=== PATIENT | male | born 1975 | race Caucasian/White ===

== ENCOUNTER 2017-12-06 21:17 | Emergency (ER) | payer MEDICARE, OTHER ==
[~2017-12-06] VITALS: Ht 177.8 cm; Wt 68.0 kg
[2017-12-06] MEDS ORDERED: BUSP5TAB3 PO (22:37)
[2017-12-06] MEDS ORDERED: ARIP2TAB3 PO (22:37)
[2017-12-06] MEDS ORDERED: LORAZEPAM 1 MG TABLET PO ONE (23:00)
[2017-12-06] MEDS ORDERED: OLANZAPINE 5 MG/TAB.RAPDIS PO ONE (23:00)
[2017-12-06] MEDS ORDERED: LORAZEPAM 1 MG TABLET ONE (23:11)
[2017-12-06] MEDS ORDERED: OLANZAPINE 5 MG TABLET ONE (23:11)
[2017-12-06 23:24] LABS: BASOPHILS # (AUTO) 0.1 /CMM (0.0-0.2); BASOPHILS % (AUTO) 0.6 % (0.0-2.0); HEMATOCRIT 47 % (39-51); HEMOGLOBIN 15.6 g/dL (13.5-17.5); LYMPHOCYTES # (AUTO) 1.5 /CMM (0.8-4.8); LYMPHOCYTES % (AUTO) 9.5 % (20.0-44.0); MEAN CORPUSCULAR HEMOGLOBIN 32 PG (26.0-33.0); MEAN CORPUSCULAR HGB CONC 33 g/dl (31.0-36.0); MEAN CORPUSCULAR VOLUME 95 fL (80-96); MONOCYTES # (AUTO) 0.8 /CMM (0.1-1.30); MONOCYTES % (AUTO) 5.1 % (2.0-12.0); NEUTROPHILS # (AUTO) 13.7 /CMM (1.8-8.9); NEUTROPHILS % (AUTO) 84.8 % (43.0-81.0); PLATELET COUNT (AUTO) 332 /CMM (150-450); RDW COEFFICIENT OF VARIATION 13.8 (11.5-15.0); RED BLOOD CELL COUNT(AUTO) 4.91 MIL/uL (4.5-6.0); WHITE BLOOD COUNT (AUTO) 16.2 K/uL (4.3-11.0)
[2017-12-06 23:36] LABS: CALCIUM, SERUM 9.2 mg/dL (8.5-10.1); CARBON DIOXIDE 24 mmol/L (21-32); CHLORIDE 99 mmol/L (98-107); CREATININE 1.1 mg/dL (0.6-1.3); GLUCOSE 109 mg/dL (74-106); POTASSIUM 3.1 mmol/L (3.5-5.1); SODIUM SERUM 134 mmol/L (136-145); UREA NITROGEN, BLOOD 9 mg/dL (7-18)
[2017-12-06 23:41] LABS: ALANINE AMINOTRANSFERASE 48 U/L (12-78); ALBUMIN 4.2 g/dL (3.4-5.0); ALCOHOL, BLOOD < 3 mg/dL (0-0); ALKALINE PHOSPHATASE 82 U/L (46-116); ASPARTATE AMINOTRANSFERASE 69 U/L (15-37); BILIRUBIN,DIRECT 0.1 mg/dL (0.0-0.2); BILIRUBIN,TOTAL 0.6 mg/dL (0.2-1.0); TOTAL PROTEIN, SERUM 8.1 g/dL (6.4-8.2)
[2017-12-06] MEDS ORDERED: POTASSIUM CHLORIDE 20 MEQ TAB.PRT.SR PO ONE (23:57)
[2017-12-07] MEDS ORDERED: POTASSIUM CHLORIDE 20 MEQ TAB.PRT.SR PO ONE
[2017-12-07 00:11] LABS: APPEARANCE,URINE CLEAR (CLEAR); BILIRUBIN,URINE NEGATIVE (NEGATIVE); BLOOD, URINE TRACE-INTA Ery/uL (NEGATIVE); COLOR,URINE YELLOW (YELLOW); KETONES,URINE TRACE (NEGATIVE); LEUKOCYTE ESTERASE ,URINE NEGATIVE (NEGATIVE); NITRITE, URINE NEGATIVE (NEGATIVE); PROTEIN,URINE 1+ mg/dl (NEGATIVE); UGLUCOSE NEGATIVE (NEGATIVE); UROBILINOGEN,URINE 0.2 EU/dL (0.2)
[2017-12-07 00:29] LABS: BACTERIA,URINE Few /HPF (None Seen); MUCUS,URINE Few /LPF (None Seen); SQUAMOUS EPITHELIAL CELL,UR Rare /HPF (None Seen)
[2017-12-07] MEDS ORDERED: LORAZEPAM 1 MG TABLET ONE (01:00)
[2017-12-07 01:11] VITALS: BP 145/89
[2017-12-07] MEDS ORDERED: LORAZEPAM 1 MG TABLET PO ONE (01:30)
== END 2017-12-07 01:24 | disposition home or self-care (01) ==
LOC: ER 21:18
DX: F20.9 Schizophrenia, unspecified (principal); F31.9 Bipolar disorder, unspecified
CPT/HCPCS: 36415; 80048; 80076; 80305; 81001; 85025; 99284; A4606; G0480; 81000-TC; Z7610

== ENCOUNTER 2018-08-04 20:57 | Emergency (ER) | payer MEDICARE, OTHER ==
[~2018-08-04] VITALS: Ht 185.4 cm; Wt 97.1 kg
[~2018-08-04 20:57] MED LIST: ARIP2TAB3 PO; BUSP5TAB3 PO
[2018-08-04 21:57] VITALS: BP 149/97
--- NOTE | 2018-08-04 23:06 | NUR ---
PT LEFT WITHOUT DISCHARGE INSTRUCTIONS.
== END 2018-08-04 23:09 | disposition home or self-care (01) ==
LOC: ER 20:57
DX: F41.9 Anxiety disorder, unspecified (principal); F10.129 Alcohol abuse with intoxication, unspecified; F31.9 Bipolar disorder, unspecified; Y90.9 Presence of alcohol in blood, level not specified; Z90.89 Acquired absence of other organs

== ENCOUNTER 2018-08-18 18:16 | Emergency (ER) | payer MEDICARE, OTHER ==
[~2018-08-18] VITALS: Ht 185.4 cm; Wt 97.1 kg
[2018-08-18 18:16] VITALS: BP 157/112
[2018-08-18] MEDS ORDERED: LORAZEPAM 1 MG TABLET PO ONE (22:30)
[2018-08-18] MEDS ORDERED: LORAZEPAM 1 MG TABLET ONE (22:55)
== END 2018-08-18 23:19 | disposition home or self-care (01) ==
LOC: ER 18:21
DX: F41.9 Anxiety disorder, unspecified (principal); F31.9 Bipolar disorder, unspecified; Z90.89 Acquired absence of other organs; Z79.899 Other long term (current) drug therapy

== ENCOUNTER 2019-02-06 06:04 | Emergency (ER) | payer MEDICARE, OTHER ==
[~2019-02-06] VITALS: Ht 185.4 cm; Wt 104.3 kg
--- NOTE | 2019-02-06 06:15 | NUR ---
PT BIBSELF REQUESTING MED REFILL FOR INVEGA MEDICATION. PT ALSO C/O AUDITORY HALLUCIATIONS AND REQUESTING FOR VOLUNTARY ADMISSION TO PSYCH FACILITY. DENIES SI/HI AT THIS TIME. PT AAOX4. CALM AND COOPERATIVE. RESPIRATIONS EVEN AND UNLABORED. SKIN WARM AND INTACT. ABLE TO AMBULATE WITH STEADY GAIT. NO ACUTE DISTRESS NOTED AT THIS TIME. WILL CONTINUE TO MONITOR
--- NOTE | 2019-02-06 06:30 | NUR ---
URINE COLLECTED AND SENT TO LAB
--- NOTE | 2019-02-06 06:40 | NUR ---
TITRATOR AT BEDSIDE FOR BLOOD DRAW
[2019-02-06 07:01] LABS: BASOPHILS # (AUTO) 0.1 /CMM (0.0-0.2); BASOPHILS % (AUTO) 0.5 % (0.0-2.0); EOSINOPHILS % (AUTO) 0.2 % (0.0-6.0); HEMATOCRIT 46 % (39-51); HEMOGLOBIN 15.7 g/dL (13.5-17.5); LYMPHOCYTES # (AUTO) 1.8 /CMM (0.8-4.8); LYMPHOCYTES % (AUTO) 12.9 % (20.0-44.0); MEAN CORPUSCULAR HGB CONC 34 g/dl (31.0-36.0); MEAN CORPUSCULAR VOLUME 93 fL (80-96); MONOCYTES # (AUTO) 0.8 /CMM (0.1-1.30); MONOCYTES % (AUTO) 5.9 % (2.0-12.0); NEUTROPHILS # (AUTO) 11.5 /CMM (1.8-8.9); NEUTROPHILS % (AUTO) 80.5 % (43.0-81.0); PLATELET COUNT (AUTO) 382 /CMM (150-450); WHITE BLOOD COUNT (AUTO) 14.3 K/uL (4.3-11.0)
[2019-02-06 07:11] LABS: CALCIUM, SERUM 9.1 mg/dL (8.5-10.1); CARBON DIOXIDE 27 mmol/L (21-32); CHLORIDE 98 mmol/L (98-107); CREATININE 0.9 mg/dL (0.6-1.3); GLUCOSE 113 mg/dL (74-106); POTASSIUM 4.2 mmol/L (3.5-5.1); SODIUM SERUM 136 mmol/L (136-145); UREA NITROGEN, BLOOD 7 mg/dL (7-18)
[2019-02-06 07:19] LABS: ALANINE AMINOTRANSFERASE 24 U/L (12-78); ALBUMIN 4.1 g/dL (3.4-5.0); ALCOHOL, BLOOD < 3 mg/dL (0-0); ALKALINE PHOSPHATASE 80 U/L (46-116); ASPARTATE AMINOTRANSFERASE 14 U/L (15-37); BILIRUBIN,DIRECT 0.1 mg/dL (0.0-0.2); BILIRUBIN,TOTAL 0.5 mg/dL (0.2-1.0); SALICYLATE 4.8 mg/dL (2.8-20.0)
[2019-02-06 07:24] LABS: APPEARANCE,URINE Clear (CLEAR); BILIRUBIN,URINE Negative (NEGATIVE); BLOOD, URINE Trace-intact Ery/uL (NEGATIVE); COLOR,URINE Yellow (YELLOW); KETONES,URINE Negative (NEGATIVE); LEUKOCYTE ESTERASE ,URINE Negative (NEGATIVE); NITRITE, URINE Negative (NEGATIVE); PH,URINE 7.5 (5.0-8.0); PROTEIN,URINE Negative (NEGATIVE); UGLUCOSE Negative (NEGATIVE); UROBILINOGEN,URINE 0.2 EU/dL (0.2)
[2019-02-06 07:42] LABS: ACETAMINOPHEN 0 ug/ml (10-30)
[2019-02-06 07:47] LABS: BACTERIA,URINE Rare /HPF (None Seen); SQUAMOUS EPITHELIAL CELL,UR Few /HPF (None Seen); WBC,URINE NONE SEEN /HPF (0-3)
--- NOTE | 2019-02-06 11:53 | NUR ---
RECIEVED CALL FROM INTAKE AT [facility] YISSEL ESTRADA STATING THEY HAVE RECEIVED FAX AND WILL FORWARD TO [facility] FOR REVIEW AND FOLLOW UP
--- NOTE | 2019-02-06 13:48 | NUR ---
CALLED [facility] FOR UPDATE, ROSA PARIKH WILL CALL BACK
[2019-02-06] MEDS ORDERED: MIDAZOLAM HCL 5 MG/5ML VIAL IM ONE (15:00)
--- NOTE | 2019-02-06 16:05 | NUR ---
PER [facility], NO FORESEABLE DISCHARGES AT THE MOMENT WILL CALL WITH UPDATE
--- NOTE | 2019-02-06 19:41 | NUR ---
-[facility]ED [facility] MD: DR. HERNANDEZ/ DR. MEYERS NUMBER FOR REPORT: [phone]
--- NOTE | 2019-02-06 19:59 | NUR ---
CALLED [facility] 2029 TRIP NUMBER [id number]
--- NOTE | 2019-02-06 20:07 | NUR ---
PER [facility], INCORRECT BED ASSIGNMENT WAS MADE. NO BEDS AVAILABLE AT THIS TIME. WILL CALL BACK ONCE MALE BED BECOMES AVAILABLE.
--- NOTE | 2019-02-06 22:39 | NUR ---
PER [facility] CHINO SHUKLA, PT WILL GO TO [facility], PLEASE CALL RN FOR ROOM ASSIGNMENT AND REPORT AT [phone] EXT [phone]
--- NOTE | 2019-02-07 00:19 | NUR ---
GAVE REPORT TO MIAH LEE FOR [facility] FROM [facility]
--- NOTE | 2019-02-07 00:22 | NUR ---
CALLED [facility] FOR TRANSPORTATION, ETA 0033
--- NOTE | 2019-02-07 00:30 | NUR ---
PT AAOX4. VITAL SIGNS STABLE. DENIES SI/HI AT THIS TIME. PT REFUSING TO GO TO [facility]. DR. SILVA MADE AWARE, PT MEDICALLY CLEARED FOR DISCHARGE
[2019-02-07 00:43] VITALS: BP 141/89
--- NOTE | 2019-02-07 00:44 | NUR ---
Patient given written and verbal discharge instructions. Patient verbalizes understanding of instructions. Patient is ambulatory with steady gait. Refuses offer of detention placement. Patient given list of available shelters in surrounding area.
== END 2019-02-07 00:48 | disposition home or self-care (01) ==
LOC: ER 06:07
DX: F20.9 Schizophrenia, unspecified (principal); F41.9 Anxiety disorder, unspecified; F15.10 Other stimulant abuse, uncomplicated; G47.00 Insomnia, unspecified; I10 Essential (primary) hypertension; F31.9 Bipolar disorder, unspecified; F10.10 Alcohol abuse, uncomplicated; F17.200 Nicotine dependence, unspecified, uncomplicated; Y90.0 Blood alcohol level of less than 20 mg/100 ml; Z90.89 Acquired absence of other organs
CPT/HCPCS: 36415; 80048; 80076; 80305; 80307; 80329; 81001; 85025; 99284; G0480; 81000-TC

== ENCOUNTER 2019-04-05 04:15 | Emergency (ER) | payer MEDICARE, OTHER ==
[~2019-04-05] VITALS: Ht 177.8 cm; Wt 99.8 kg
[2019-04-05] MEDS ORDERED: LORAZEPAM 1 MG TABLET PO ONE (04:30)
[2019-04-05] MEDS ORDERED: OLANZAPINE 5 MG TABLET PO ONE (04:30)
[2019-04-05] MEDS ORDERED: LORAZEPAM 1 MG TABLET ONE (04:33)
[2019-04-05] MEDS ORDERED: OLANZAPINE 5 MG TABLET ONE (04:33)
--- NOTE | 2019-04-05 04:35 | NUR ---
biba w/ c/o anxiety and "feeling uncomfortable" after using metamitamin. pt is pplaced on a monitor. vss. will cont to monitor,
[2019-04-05 04:47] LABS: BASOPHILS # (AUTO) 0.1 /CMM (0.0-0.2); BASOPHILS % (AUTO) 0.9 % (0.0-2.0); EOSINOPHILS % (AUTO) 0.1 % (0.0-6.0); HEMATOCRIT 41 % (39-51); LYMPHOCYTES # (AUTO) 1.3 /CMM (0.8-4.8); LYMPHOCYTES % (AUTO) 11.5 % (20.0-44.0); MEAN CORPUSCULAR HGB CONC 34 g/dl (31.0-36.0); MEAN CORPUSCULAR VOLUME 94 fL (80-96); MONOCYTES # (AUTO) 0.5 /CMM (0.1-1.30); MONOCYTES % (AUTO) 4.2 % (2.0-12.0); NEUTROPHILS # (AUTO) 9.8 /CMM (1.8-8.9); NEUTROPHILS % (AUTO) 83.3 % (43.0-81.0); PLATELET COUNT (AUTO) 391 /CMM (150-450); RED BLOOD CELL COUNT(AUTO) 4.34 MIL/uL (4.5-6.0); WHITE BLOOD COUNT (AUTO) 11.8 K/uL (4.3-11.0)
[2019-04-05 04:58] LABS: CALCIUM, SERUM 8.4 mg/dL (8.5-10.1); CARBON DIOXIDE 20 mmol/L (21-32); CHLORIDE 102 mmol/L (98-107); CREATININE 0.9 mg/dL (0.6-1.3); GLUCOSE 131 mg/dL (74-106); POTASSIUM 3.4 mmol/L (3.5-5.1); SODIUM SERUM 139 mmol/L (136-145); UREA NITROGEN, BLOOD 10 mg/dL (7-18)
[2019-04-05] MEDS ORDERED: IV NS 0.9% 1,000 ML BAG IV ONE (05:00)
[2019-04-05 05:10] LABS: ALANINE AMINOTRANSFERASE 32 U/L (12-78); ALBUMIN 3.7 g/dL (3.4-5.0); ALKALINE PHOSPHATASE 73 U/L (46-116); ASPARTATE AMINOTRANSFERASE 23 U/L (15-37); BILIRUBIN,DIRECT 0.1 mg/dL (0.0-0.2); BILIRUBIN,TOTAL 0.2 mg/dL (0.2-1.0); TOTAL PROTEIN, SERUM 7.2 g/dL (6.4-8.2)
[2019-04-05 05:11] LABS: B-TYPE NATRIURETIC PEPTIDE < 5 PG/ML (0-125)
[2019-04-05] MEDS ORDERED: methylPREDNISolone SOD SUCC 125 MG/2ML VIAL ONE (05:18)
[2019-04-05] MEDS ORDERED: IPRATROPIUM NEB FS 0.5 MG/2.5 ML AMPUL.NEB ONE (05:20)
[2019-04-05] MEDS ORDERED: ALBUTEROL FS 2.5 MG/3 ML VIAL.NEB ONE (05:20)
[2019-04-05] MEDS ORDERED: methylPREDNISolone SOD SUCC 125 MG/2ML VIAL IV ONE (05:30)
[2019-04-05] MEDS ORDERED: ALBUTEROL FS 2.5 MG/3 ML VIAL.NEB NEB ONE (05:30)
[2019-04-05] MEDS ORDERED: IPRATROPIUM NEB FS 0.5 MG/2.5 ML AMPUL.NEB NEB ONE (05:30)
--- NOTE | 2019-04-05 06:50 | NUR ---
IV removed. Catheter intact and site benign. Pressure and 4x4 applied to site. No bleeding noted.
--- NOTE | 2019-04-05 07:49 | NUR ---
Patient discharged to home in stable condition. Written and verbal after care instructions given. Patient verbalizes understanding of instruction.
[2019-04-05 07:50] VITALS: BP 142/77
== END 2019-04-05 07:52 | disposition home or self-care (01) ==
LOC: ER 04:16
DX: F20.9 Schizophrenia, unspecified (principal); F41.9 Anxiety disorder, unspecified; R00.0 Tachycardia, unspecified; F15.10 Other stimulant abuse, uncomplicated; F17.200 Nicotine dependence, unspecified, uncomplicated; I10 Essential (primary) hypertension; F31.9 Bipolar disorder, unspecified; Z90.89 Acquired absence of other organs; Z79.899 Other long term (current) drug therapy
CPT/HCPCS: 36415; 71045; 80048; 80076; 83880; 84484; 85025; 85378; 93005 ×2; 94640; 96374; 99284; 99406; J7030; J2930

== ENCOUNTER 2019-07-12 06:05 | Emergency (ER) | payer MEDICARE, OTHER ==
[~2019-07-12] VITALS: Ht 185.4 cm; Wt 97.1 kg
--- NOTE | 2019-07-12 06:24 | NUR ---
Belonings placed in locker. Sitter at bedside. Awaiting Urine sample.
--- NOTE | 2019-07-12 06:24 | NUR ---
BIBRA39. AAOX4. AMBULATORY WITH STEADY GAIT. C/O FEELING ANXIOUS - RACING THOUGHT, HEADACHE, DIFFICULTY BREATHING. -SI, -HI. Placed in gown, VSS, No acute distress noted.
--- NOTE | 2019-07-12 06:35 | NUR ---
INTERNATIONAL FIRST OFFICER AT BEDSIDE FOR LABS.
[2019-07-12 06:49] LABS: BASOPHILS # (AUTO) 0.1 /CMM (0.0-0.2); BASOPHILS % (AUTO) 0.7 % (0.0-2.0); EOSINOPHILS % (AUTO) 0.3 % (0.0-6.0); HEMATOCRIT 49 % (39-51); HEMOGLOBIN 16.3 g/dL (13.5-17.5); LYMPHOCYTES # (AUTO) 1.7 /CMM (0.8-4.8); MEAN CORPUSCULAR HGB CONC 33 g/dl (31.0-36.0); MEAN CORPUSCULAR VOLUME 94 fL (80-96); MONOCYTES # (AUTO) 0.5 /CMM (0.1-1.30); MONOCYTES % (AUTO) 5.7 % (2.0-12.0); NEUTROPHILS # (AUTO) 5.8 /CMM (1.8-8.9); NEUTROPHILS % (AUTO) 72.3 % (43.0-81.0); PLATELET COUNT (AUTO) 422 /CMM (150-450); RED BLOOD CELL COUNT(AUTO) 5.19 MIL/uL (4.5-6.0); WHITE BLOOD COUNT (AUTO) 8.1 K/uL (4.3-11.0)
[2019-07-12 06:54] LABS: CALCIUM, SERUM 8.1 mg/dL (8.5-10.1); POTASSIUM 3.5 mmol/L (3.5-5.1)
[2019-07-12 07:01] LABS: ALBUMIN 3.6 g/dL (3.4-5.0); BILIRUBIN,DIRECT 0.1 mg/dL (0.0-0.2); BILIRUBIN,TOTAL 0.4 mg/dL (0.2-1.0); TOTAL PROTEIN, SERUM 6.9 g/dL (6.4-8.2)
--- NOTE | 2019-07-12 07:56 | NUR ---
ENCOURAGED PATIENT TO GIVE URINE SAMPLE, PATIENT STILL UNABLE TO PROVIDE A SAMPLE AT THIS TIME.
--- NOTE | 2019-07-12 08:28 | NUR ---
JL AT [facility] HOLDING BED 108-B FOR PT [phone]
--- NOTE | 2019-07-12 08:42 | NUR ---
Social service consult requested by MD for voluntary psychiatric admission. Per MD notes, pt is a 43-year-old male who states he was feeling "bad this morning". Patient states he is feeling depressed and having "bad thoughts". Patient states he is having thoughts of suicide. Patient plans to drink himself to . Patient did not feel comfortable with himself so he called 911 and told them that he could not breathe. Patient admits to drinking alcohol earlier today. ELECTRONIC PAGINATION SYSTEM OPERATOR met with the pt bedside in ED. ELECTRONIC PAGINATION SYSTEM OPERATOR introduced self and explained her role. Pt is alert and oriented x 4. Pt appears disheveled and unkempt. Pt reports to be homeless for 2 years. Pt reports he has a history of Bipolar and Schizophrenia. Pt is not taking any psychotropic medications at this time. Pt states, he was last hospitalized at [facility] a couple of months ago. Pt reports he is feeling suicidal with a plan to "drink himself to ." Pt reports he has high blood pressure and ran out of his medications. Pt drinks alcohol daily and last drank up to 5 bottles of vodka. Pt denies any drug use. Pt smokes about 20 cigarettes per day. Pt receives $800 per month in SSDI. Pt is seeking voluntary psychiatric admission. ELECTRONIC PAGINATION SYSTEM OPERATOR contacted Henry at [facility] who will be holding bed 108/A for the pt. ELECTRONIC PAGINATION SYSTEM OPERATOR to fax clinicals once labs are available. ELECTRONIC PAGINATION SYSTEM OPERATOR updated MD regarding pt's discharge plan.
[2019-07-12 08:45] LABS: APPEARANCE,URINE CLEAR (CLEAR); COLOR,URINE YELLOW (YELLOW)
[2019-07-12 08:46] LABS: BILIRUBIN,URINE NEGATIVE (NEGATIVE); BLOOD, URINE NEGATIVE Ery/uL (NEGATIVE); KETONES,URINE TRACE (NEGATIVE); LEUKOCYTE ESTERASE ,URINE NEGATIVE (NEGATIVE); NITRITE, URINE NEGATIVE (NEGATIVE); PROTEIN,URINE NEGATIVE (NEGATIVE); UGLUCOSE NEGATIVE (NEGATIVE); UROBILINOGEN,URINE 0.2 EU/dL (0.2)
[2019-07-12] MEDS ORDERED: PROPRANOLOL LA 60 MG CAP.SA.24H PO SCH (09:00)
[2019-07-12] MEDS ORDERED: PROPRANOLOL HCL 40 MG TABLET PO ONE (09:00)
--- NOTE | 2019-07-12 09:53 | NUR ---
CUTTER HELPER faxed clinicals to [facility] intake.
[2019-07-12] MEDS ORDERED: HYDROCODONE/APAP 10/325MG 1 EA TABLET ONE (10:36)
--- NOTE | 2019-07-12 10:41 | NUR ---
Received call back from [facility] intake. Pt has been accepted at [facility]. Accepting Dr Nunez/Dr. Curry. Report needs to be called to BRENDAN Crystal at [place] . SWITCHBOARD MANAGER updated ED with aforementioned information.
--- NOTE | 2019-07-12 10:52 | NUR ---
CALLED AM ONWARD TRANSPORT ETA IS 1130.
--- NOTE | 2019-07-12 11:00 | NUR ---
REPORT GIVEN TO MAIKEL LEE AT [facility], PATIENT IS CARMEN TO UNIT #1
--- NOTE | 2019-07-12 11:46 | NUR ---
REPORT GIVEN TO FUNDS TRANSFER CLERK. PATIENT A/OX4, BREATHING EVEN AND UNLABORED, NO DISTRESS NOTED. VITALS STABLE. Patient discharged to [facility] in stable condition. Written and verbal after care instructions given. Patient verbalizes understanding of instruction.
[2019-07-12 11:47] VITALS: BP 153/98
== END 2019-07-12 11:48 ==
LOC: ER 06:06
DX: R45.851 Suicidal ideations (principal); F15.10 Other stimulant abuse, uncomplicated; F31.9 Bipolar disorder, unspecified; F20.9 Schizophrenia, unspecified; I10 Essential (primary) hypertension; Z90.89 Acquired absence of other organs; Z59.0 Homelessness; Z79.899 Other long term (current) drug therapy
CPT/HCPCS: 80048; 36415; 80076; 80305; 80307; 80329; 81001; 85025; 99285; G0480; 81000-TC

== ENCOUNTER 2019-08-12 01:38 | Emergency (ER) | payer MEDICARE, OTHER ==
[~2019-08-12] VITALS: Ht 185.4 cm; Wt 97.5 kg
--- NOTE | 2019-08-12 01:38 | NUR ---
TO ER BED 14 AMBULATORY C/O SI WITH PLAN TO RUN INTO TRAFFIC. ADMITS TO ETOH USE TODAY. PT DENIES HI. PT CALM AND COOPERATIVE. PT AAOX4 NO ACUTE DISTRESS NOTED, RESP EVEN AND UNLABORED. PLACE PT ON HOSPITAL GOWN, ALL BELONGINGS REMOVED AND PLACED IN A LOCKED HOSPITAL LOCKER. 1:1 SITTER AT BEDSIDE FOR PT SAFETY.
--- NOTE | 2019-08-12 02:12 | NUR ---
URINE SPECIMEN COLLECTED AND SENT TO LAB.
[2019-08-12] MEDS ORDERED: OLANZAPINE 5 MG TABLET PO ONE (03:00)
[2019-08-12 03:06] LABS: APPEARANCE,URINE Clear (CLEAR); BILIRUBIN,URINE Negative (NEGATIVE); BLOOD, URINE Trace-intact Ery/uL (NEGATIVE); COLOR,URINE Yellow (YELLOW); KETONES,URINE Negative (NEGATIVE); LEUKOCYTE ESTERASE ,URINE Negative (NEGATIVE); NITRITE, URINE Negative (NEGATIVE); PH,URINE 5.5 (5.0-8.0); PROTEIN,URINE Negative (NEGATIVE); UGLUCOSE Negative (NEGATIVE); UROBILINOGEN,URINE 0.2 EU/dL (0.2)
[2019-08-12] MEDS ORDERED: OLANZAPINE 5 MG TABLET ONE (03:08)
--- NOTE | 2019-08-12 03:12 | NUR ---
pt medicated as ordered.
--- NOTE | 2019-08-12 03:13 | NUR ---
BLOOD DRAWN BY REHABILITATION ASSISTANT.
[2019-08-12 03:16] LABS: BASOPHILS # (AUTO) 0.1 /CMM (0.0-0.2); BASOPHILS % (AUTO) 0.6 % (0.0-2.0); EOSINOPHILS % (AUTO) 0.1 % (0.0-6.0); HEMATOCRIT 48 % (39-51); HEMOGLOBIN 16.1 g/dL (13.5-17.5); LYMPHOCYTES # (AUTO) 1.7 /CMM (0.8-4.8); LYMPHOCYTES % (AUTO) 15.9 % (20.0-44.0); MEAN CORPUSCULAR HGB CONC 34 g/dl (31.0-36.0); MEAN CORPUSCULAR VOLUME 93 fL (80-96); MONOCYTES # (AUTO) 0.8 /CMM (0.1-1.30); MONOCYTES % (AUTO) 7.5 % (2.0-12.0); NEUTROPHILS # (AUTO) 8.2 /CMM (1.8-8.9); NEUTROPHILS % (AUTO) 75.9 % (43.0-81.0); PLATELET COUNT (AUTO) 373 /CMM (150-450); RED BLOOD CELL COUNT(AUTO) 5.11 MIL/uL (4.5-6.0); WHITE BLOOD COUNT (AUTO) 10.8 K/uL (4.3-11.0)
[2019-08-12 03:27] LABS: CALCIUM, SERUM 8.3 mg/dL (8.5-10.1); POTASSIUM 3.8 mmol/L (3.5-5.1)
[2019-08-12 03:35] LABS: BILIRUBIN,DIRECT 0.1 mg/dL (0.0-0.2); BILIRUBIN,TOTAL 0.3 mg/dL (0.2-1.0); SALICYLATE 2.9 mg/dL (2.8-20.0); TOTAL PROTEIN, SERUM 7.6 g/dL (6.4-8.2)
[2019-08-12 03:36] LABS: BACTERIA,URINE Few /HPF (None Seen); RBC,URINE 0-2 /HPF (0-2); SQUAMOUS EPITHELIAL CELL,UR Rare /HPF (None Seen); WBC,URINE 0-2 /HPF (0-3)
[2019-08-12] MEDS ORDERED: ONDANSETRON 4 MG TAB.RAPDIS ONE (03:48)
[2019-08-12] MEDS ORDERED: LORAZEPAM INJ 2 MG/ML VIAL ONE (04:00)
[2019-08-12] MEDS ORDERED: LORAZEPAM INJ 2 MG/ML VIAL IM ONE (04:00)
[2019-08-12] MEDS ORDERED: ONDANSETRON 4 MG TAB.RAPDIS SL ONE (04:00)
--- NOTE | 2019-08-12 04:39 | NUR ---
PT ASLEEP. VSS. NO ACUTE DISTRESS NOTED. SAFETY PRECAUTIONS IMPLEMENTED. ON CONSTANT OBSERVATION W SITTER AT BEDSIDE
--- NOTE | 2019-08-12 08:33 | NUR ---
CIRCUIT BOARD REPAIR TECHNICIAN spoke with ROSA Crystal in ED and informed him she will initiate the voluntary psychiatric admission for [facility]. CIRCUIT BOARD REPAIR TECHNICIAN contacted Henry at [facility] for voluntary psychiatric admission per pt's request. Henry informed CIRCUIT BOARD REPAIR TECHNICIAN they will have a bed for the pt and to fax clinicals to intake. Clinicals faxed to [facility] intake dept.
--- NOTE | 2019-08-12 09:45 | NUR ---
ASSOCIATE contacted Intake and spoke with Kathy, who informed SW that she received the clinicals and are currently being reviewed.
--- NOTE | 2019-08-12 10:33 | NUR ---
GERRY received a call from Tommy at [facility] intake stating pt has been accepted at [facility]. Accepting Dr. Fox and Sr. Curry. Report needs to be called at 12PM to BRENDAN Barber at [facility] . GERRY updated ROSA Crystal in ED.
--- NOTE | 2019-08-12 12:30 | NUR ---
PT EASILY AROUSABLE. STABLE VITALS. PROVIDED W/ LUNCH TRAY.
--- NOTE | 2019-08-12 13:33 | NUR ---
CALLED [facility] FOR TRANSPORT TO [facility]. ETA 1400.
[2019-08-12 14:15] VITALS: BP 152/98
--- NOTE | 2019-08-12 14:20 | NUR ---
TRANSPORTED TO [facility] IN STABLE CONDITION.
== END 2019-08-12 14:22 ==
LOC: ER 01:38
DX: F10.129 Alcohol abuse with intoxication, unspecified (principal); R45.851 Suicidal ideations; F41.9 Anxiety disorder, unspecified; F19.10 Other psychoactive substance abuse, uncomplicated; I10 Essential (primary) hypertension; F31.9 Bipolar disorder, unspecified; F20.9 Schizophrenia, unspecified; Y90.6 Blood alcohol level of 120-199 mg/100 ml; Z90.89 Acquired absence of other organs; Z59.0 Homelessness; Z79.899 Other long term (current) drug therapy
CPT/HCPCS: 36415; 80048; 80076; 80305; 80307; 80329; 81001; 85025; 96372; 99285; G0480; J2060; Q0162; 81000-TC

== ENCOUNTER 2019-10-19 04:06 | Emergency (ER) | payer MEDICARE, OTHER ==
[~2019-10-19] VITALS: Ht 185.4 cm; Wt 96.6 kg
[2019-10-19] MEDS ORDERED: OLANZAPINE 5 MG TABLET ONE (04:13)
--- NOTE | 2019-10-19 04:15 | NUR ---
JOSEF [address] SI PLANNING RO OVERDOSE ON HIS MEDS, PT WAS ASSISTED TO BED 15. A, OX3, SEEMS AGITATED. PT WAS GOWNED UP. ALL BELONGINGS WERE TAKEN AWAY AND KEPT IN SAFE. REMAINED UNDER CLOSE SUPERVISION OF THE SITTER FOR SAFETY. SI PRECAUTION IN PLACE. WILL CONT TO MONITOR ,
[2019-10-19 04:27] LABS: BASOPHILS # (AUTO) 0.1 /CMM (0.0-0.2); BASOPHILS % (AUTO) 0.9 % (0.0-2.0); EOSINOPHILS % (AUTO) 0.1 % (0.0-6.0); HEMATOCRIT 45 % (39-51); HEMOGLOBIN 15.4 g/dL (13.5-17.5); LYMPHOCYTES % (AUTO) 19.7 % (20.0-44.0); MEAN CORPUSCULAR HGB CONC 34 g/dl (31.0-36.0); MEAN CORPUSCULAR VOLUME 96 fL (80-96); MONOCYTES # (AUTO) 1.1 /CMM (0.1-1.30); MONOCYTES % (AUTO) 10.4 % (2.0-12.0); NEUTROPHILS # (AUTO) 7.1 /CMM (1.8-8.9); NEUTROPHILS % (AUTO) 68.9 % (43.0-81.0); PLATELET COUNT (AUTO) 375 /CMM (150-450); RED BLOOD CELL COUNT(AUTO) 4.73 MIL/uL (4.5-6.0); WHITE BLOOD COUNT (AUTO) 10.3 K/uL (4.3-11.0)
[2019-10-19] MEDS ORDERED: OLANZAPINE 5 MG TABLET PO ONE (04:30)
[2019-10-19 04:37] LABS: CALCIUM, SERUM 8.9 mg/dL (8.5-10.1); CREATININE 1.1 mg/dL (0.6-1.3); POTASSIUM 3.5 mmol/L (3.5-5.1)
[2019-10-19 04:42] LABS: ALBUMIN 4.2 g/dL (3.4-5.0); BILIRUBIN,DIRECT 0.1 mg/dL (0.0-0.2); BILIRUBIN,TOTAL 0.3 mg/dL (0.2-1.0); SALICYLATE 2.4 mg/dL (2.8-20.0); TOTAL PROTEIN, SERUM 7.7 g/dL (6.4-8.2)
[2019-10-19 04:44] LABS: APPEARANCE,URINE Clear (CLEAR); BILIRUBIN,URINE Negative (NEGATIVE); BLOOD, URINE Negative Ery/uL (NEGATIVE); COLOR,URINE Yellow (YELLOW); KETONES,URINE Negative (NEGATIVE); LEUKOCYTE ESTERASE ,URINE Negative (NEGATIVE); NITRITE, URINE Negative (NEGATIVE); PROTEIN,URINE Negative (NEGATIVE); UGLUCOSE Negative (NEGATIVE); UROBILINOGEN,URINE 0.2 EU/dL (0.2)
[2019-10-19] MEDS ORDERED: LORAZEPAM 1 MG TABLET ONE (05:52)
[2019-10-19] MEDS ORDERED: LORAZEPAM 1 MG TABLET PO ONE (06:00)
--- NOTE | 2019-10-19 07:20 | NUR ---
assume pt care. resting in bed. on monitor. stable condition. sitter at bedside
--- NOTE | 2019-10-19 09:26 | NUR ---
spoke to Mary from manager social responsibility re: repeat ethanol level. SSD will refer patient to [facility].
--- NOTE | 2019-10-19 10:52 | NUR ---
RECIEVED A CALL FROM [facility]. PT IS ACCEPTED AT [facility]. UNIT NUMBER AND ROOM NUMBER WILL BE GIVEN DURING REPORT. ACCEPTING DR'S ARE DR. ALTMAN AND DR. MOORE. [phone]. [facility].
--- NOTE | 2019-10-19 11:04 | NUR ---
CALLED [facility] FOR TRANSPORT. ETA 1400.
--- NOTE | 2019-10-19 12:59 | NUR ---
SW consult was requested by ER staff for the 44 year old male homeless patient who was brought into the ER for suicidal ideation. Pt appeared to be oriented x4. Pt appeared to be in a depressed mood and presented with a flat affect. Pt appeared to be drowsy and lethargic due to his alcohol intake. Pt stated that he has a plan to overdose on drugs and that he has the means. Pt stated that he wanted to be admitted to the hospital on a voluntary status so the SW faxed his records to [facility] with attention to Henry to the fax number: [phone]. Pt was accepted to [facility] and the accepting MDS are Dr. Parker and Dr. Ross. Pt will be transported to the hospital via ambulance. Pt signed the homeless waiver and was given homeless and substance abuse referrals.
--- NOTE | 2019-10-19 13:03 | NUR ---
report filomena to charge nurse rhiannon at [facility]. going to unit i, bed 101.c
[2019-10-19 13:53] VITALS: BP 143/90
--- NOTE | 2019-10-19 14:41 | NUR ---
transported to [facility] in stable condition.
== END 2019-10-19 14:51 ==
LOC: ER 04:08
DX: R45.851 Suicidal ideations (principal); I10 Essential (primary) hypertension; F20.9 Schizophrenia, unspecified; F17.200 Nicotine dependence, unspecified, uncomplicated; Z90.89 Acquired absence of other organs; Z59.0 Homelessness; Z79.899 Other long term (current) drug therapy
CPT/HCPCS: 36415; 80048; 80076; 80305; 80307 ×3; 80329; 81001; 85025; 99285; G0480; 81000-TC

== ENCOUNTER 2019-10-29 09:29 | Emergency (ER) | payer MEDICARE, OTHER ==
[~2019-10-29] VITALS: Ht 182.9 cm; Wt 86.2 kg
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
--- NOTE | 2019-10-29 09:37 | NUR ---
DR AYON AT BEDSIDE FOR EVAL.
--- NOTE | 2019-10-29 09:42 | NUR ---
urine collected and sent to lab
--- NOTE | 2019-10-29 09:50 | NUR ---
PT TO RADIOLOGY FOR HEAD CT SCAN VIA WHEELCHAIR
[2019-10-29 10:20] LABS: APPEARANCE,URINE Clear (CLEAR); BILIRUBIN,URINE Negative (NEGATIVE); BLOOD, URINE Negative Ery/uL (NEGATIVE); COLOR,URINE Yellow (YELLOW); KETONES,URINE 40 (NEGATIVE); LEUKOCYTE ESTERASE ,URINE Negative (NEGATIVE); NITRITE, URINE Negative (NEGATIVE); PROTEIN,URINE 30 mg/dl (NEGATIVE); UGLUCOSE Negative (NEGATIVE)
[2019-10-29 10:21] LABS: BASOPHILS # (AUTO) 0.1 /CMM (0.0-0.2); BASOPHILS % (AUTO) 0.9 % (0.0-2.0); EOSINOPHILS % (AUTO) 0.8 % (0.0-6.0); HEMATOCRIT 41 % (39-51); HEMOGLOBIN 13.8 g/dL (13.5-17.5); LYMPHOCYTES # (AUTO) 1.6 /CMM (0.8-4.8); LYMPHOCYTES % (AUTO) 14.5 % (20.0-44.0); MEAN CORPUSCULAR HGB CONC 34 g/dl (31.0-36.0); MEAN CORPUSCULAR VOLUME 96 fL (80-96); MONOCYTES % (AUTO) 8.8 % (2.0-12.0); NEUTROPHILS # (AUTO) 8.4 /CMM (1.8-8.9); PLATELET COUNT (AUTO) 329 /CMM (150-450); RED BLOOD CELL COUNT(AUTO) 4.27 MIL/uL (4.5-6.0); WHITE BLOOD COUNT (AUTO) 11.2 K/uL (4.3-11.0)
[2019-10-29 10:24] LABS: BACTERIA,URINE Rare /HPF (None Seen); RBC,URINE NONE SEEN /HPF (0-2); SQUAMOUS EPITHELIAL CELL,UR Few /HPF (None Seen); WBC,URINE NONE SEEN /HPF (0-3)
[2019-10-29 10:28] LABS: CARBON DIOXIDE 26 mmol/L (21-32); CHLORIDE 102 mmol/L (98-107); CREATININE 0.7 mg/dL (0.6-1.3); GLUCOSE 90 mg/dL (74-106); POTASSIUM 3.2 mmol/L (3.5-5.1); SODIUM SERUM 137 mmol/L (136-145); UREA NITROGEN, BLOOD 11 mg/dL (7-18)
[2019-10-29 10:43] LABS: ALANINE AMINOTRANSFERASE 56 U/L (12-78); ALBUMIN 3.7 g/dL (3.4-5.0); ALCOHOL, BLOOD < 3 mg/dL (0-0); ALKALINE PHOSPHATASE 75 U/L (46-116); ASPARTATE AMINOTRANSFERASE 46 U/L (15-37); BILIRUBIN,DIRECT 0.2 mg/dL (0.0-0.2); BILIRUBIN,TOTAL 0.6 mg/dL (0.2-1.0); TOTAL PROTEIN, SERUM 6.8 g/dL (6.4-8.2)
[2019-10-29 10:45] LABS: ACETAMINOPHEN < 2 ug/ml (10-30); SALICYLATE 1.6 mg/dL (2.8-20.0)
[2019-10-29] MEDS ORDERED: POTASSIUM CHLORIDE 20 MEQ TAB.PRT.SR PO ONE ×2 (11:00→11:07)
--- NOTE | 2019-10-29 11:11 | NUR ---
K+ 3.2 PT MEDICATED ORDERED. SEE EMAR.
--- NOTE | 2019-10-29 11:36 | NUR ---
SENT FAX TO [facility]
--- NOTE | 2019-10-29 12:05 | NUR ---
PT PROVIDED W/ MEAL TRAY.
--- NOTE | 2019-10-29 16:35 | NUR ---
ADMITTED AT [facility]. GOING TO ROOM 106.A UNDER DR RODGERS 3 FOR REPORT [phone]. ETA 60-75 MINS.
--- NOTE | 2019-10-29 16:42 | NUR ---
REPORT GIVEN TO VISH MAYORGA. PT AWAITING TRANSPORT.
[2019-10-29 17:39] VITALS: BP 132/77
[2019-10-29] MEDS ORDERED: ACETAMINOPHEN ES 500 MG TABLET ONE (18:17)
--- NOTE | 2019-10-29 18:21 | NUR ---
TRANSPORTED TO [facility]. STABLE CONDITION.
[2019-10-29] MEDS ORDERED: ACETAMINOPHEN 325 MG TABLET PO ONE (18:30)
== END 2019-10-29 18:22 ==
LOC: ER 09:33
DX: S09.8XXA Other specified injuries of head, initial encounter (principal); F20.9 Schizophrenia, unspecified; I10 Essential (primary) hypertension; Z90.89 Acquired absence of other organs; F17.200 Nicotine dependence, unspecified, uncomplicated; Z59.0 Homelessness; Z79.899 Other long term (current) drug therapy; W22.8XXA Striking against or struck by other objects, initial encounter; Y93.89 Activity, other specified; Y92.89 Other specified places as the place of occurrence of the external cause; Y99.8 Other external cause status
CPT/HCPCS: 36415; 70450; 80048; 80076; 80305; 80307; 80329; 81001; 85025; 99285; G0480; 81000-TC

== ENCOUNTER 2020-01-22 02:30 | Emergency (ER) | payer MEDICARE, OTHER ==
[~2020-01-22] VITALS: Ht 182.9 cm; Wt 95.3 kg
--- NOTE | 2020-01-22 02:57 | NUR ---
PT AAOX4. BIBSRA C/O SI TO OD ON "ALCOHOL AND DRUGS." PT PLACED IN HOSPITAL GOWN, ON MONITOR, AND PULSE OX. NO ACUTE DISTRESS NTOED. SKIN WARM AND INTACT. SITTER AT BEDSIDE. PT BELONGINGS PALCED IN LOCKER. MD AT BEDSIDE.
--- NOTE | 2020-01-22 03:07 | NUR ---
AWAITING FOR PT TO PROVIDE URINE SAMPLE.
--- NOTE | 2020-01-22 03:11 | NUR ---
CALLED SECURITY FOR WANDING
--- NOTE | 2020-01-22 03:14 | NUR ---
URINE SENT TO LAB
[2020-01-22 03:19] LABS: APPEARANCE,URINE CLEAR (CLEAR); BASOPHILS # (AUTO) 0.1 /CMM (0.0-0.2); BASOPHILS % (AUTO) 0.7 % (0.0-2.0); BILIRUBIN,URINE NEGATIVE (NEGATIVE); BLOOD, URINE TRACE-INTA Ery/uL (NEGATIVE); COLOR,URINE YELLOW (YELLOW); EOSINOPHILS % (AUTO) 0.6 % (0.0-6.0); HEMATOCRIT 43 % (39-51); HEMOGLOBIN 14.4 g/dL (13.5-17.5); KETONES,URINE NEGATIVE (NEGATIVE); LEUKOCYTE ESTERASE ,URINE NEGATIVE (NEGATIVE); LYMPHOCYTES # (AUTO) 2.1 /CMM (0.8-4.8); LYMPHOCYTES % (AUTO) 26.6 % (20.0-44.0); MEAN CORPUSCULAR HGB CONC 34 g/dl (31.0-36.0); MEAN CORPUSCULAR VOLUME 94 fL (80-96); MONOCYTES # (AUTO) 0.7 /CMM (0.1-1.30); MONOCYTES % (AUTO) 9.4 % (2.0-12.0); NEUTROPHILS # (AUTO) 4.9 /CMM (1.8-8.9); NEUTROPHILS % (AUTO) 62.7 % (43.0-81.0); NITRITE, URINE NEGATIVE (NEGATIVE); PLATELET COUNT (AUTO) 294 /CMM (150-450); PROTEIN,URINE NEGATIVE (NEGATIVE); RED BLOOD CELL COUNT(AUTO) 4.56 MIL/uL (4.5-6.0); UGLUCOSE NEGATIVE (NEGATIVE); UROBILINOGEN,URINE 0.2 EU/dL (0.2); WHITE BLOOD COUNT (AUTO) 7.8 K/uL (4.3-11.0)
[2020-01-22 03:31] LABS: BACTERIA,URINE None seen /HPF (None Seen); MUCUS,URINE Few /LPF (None Seen); RBC,URINE 0-2 /HPF (0-2); SQUAMOUS EPITHELIAL CELL,UR Few /HPF (None Seen); WBC,URINE 0-2 /HPF (0-3)
[2020-01-22 03:37] LABS: ALBUMIN 3.5 g/dL (3.4-5.0); BILIRUBIN,DIRECT 0.1 mg/dL (0.0-0.2); BILIRUBIN,TOTAL 0.2 mg/dL (0.2-1.0); CREATININE 0.8 mg/dL (0.6-1.3); POTASSIUM 3.3 mmol/L (3.5-5.1); TOTAL PROTEIN, SERUM 7.3 g/dL (6.4-8.2)
[2020-01-22 03:38] LABS: SALICYLATE 2.6 mg/dL (2.8-20.0)
--- NOTE | 2020-01-22 05:29 | NUR ---
Patient is resting comfortably in bed with eyes closed. Easily aroused. VSS. Provided with blankets.
--- NOTE | 2020-01-22 05:29 | NUR ---
PT RESTING COMFORTABLY IN BED, VITAL SIGNS STABLE. NO ACUTE DISTRESS NOTED AT THIS TIME. SITTER STILL AT BEDSIDE, WILL CONTINUE TO MONITOR
--- NOTE | 2020-01-22 05:29 | NUR ---
pt denies si/hi at this time.
[2020-01-22] MEDS ORDERED: LORAZEPAM 1 MG TABLET ONE (06:43)
[2020-01-22] MEDS ORDERED: LORAZEPAM 1 MG TABLET PO ONE (07:00)
--- NOTE | 2020-01-22 08:00 | NUR ---
Patient asleep but arousable back to sleep non distress sitter @ bedsie .
--- NOTE | 2020-01-22 12:19 | NUR ---
PT INFO FAXED TO [facility] [phone]
--- NOTE | 2020-01-22 12:28 | NUR ---
Patient awake alert noted able to ambulated to bathroom ,lunch served no agition no hallucination @ this time want to go to [facility] .
--- NOTE | 2020-01-22 14:23 | NUR ---
Patient awake alert non distress no agitation otr hallucitaion @ this time .
--- NOTE | 2020-01-22 16:02 | NUR ---
MOSES FROM [facility]: ACCEPTED PENDING MEDICALLY CLEAR NOTE FROM ER DOCTOR.
--- NOTE | 2020-01-22 17:18 | NUR ---
MOSES CALLED FROM [facility] PT ACCEPTED BY DR. ALTMAN & OSCAR CALL UNIT X [phone]
--- NOTE | 2020-01-22 17:59 | NUR ---
Medically clear by DR Banks
--- NOTE | 2020-01-22 18:00 | NUR ---
Report given Dayne LEE @ [facility] [phone] room number unit 2
--- NOTE | 2020-01-22 18:13 | NUR ---
CALLED [facility] ETA 2029 AM WEST 1130 [facility] [phone] ETA 1914
[2020-01-22] MEDS ORDERED: CLONIDINE HCL 0.1 MG TABLET ONE (19:14)
[2020-01-22 19:23] VITALS: BP 142/92
[2020-01-22] MEDS ORDERED: CLONIDINE HCL 0.1 MG TABLET PO ONE (19:30)
== END 2020-01-22 19:23 ==
LOC: ER 02:34
DX: R45.851 Suicidal ideations (principal); F15.10 Other stimulant abuse, uncomplicated; I10 Essential (primary) hypertension; F20.9 Schizophrenia, unspecified; F31.9 Bipolar disorder, unspecified; F17.200 Nicotine dependence, unspecified, uncomplicated; Z90.89 Acquired absence of other organs; Z59.0 Homelessness; Z79.899 Other long term (current) drug therapy
CPT/HCPCS: 36415; 80048; 80076; 80305; 80307 ×2; 80329; 81001; 85025; 99285; G0480; 81000-TC

== ENCOUNTER 2020-02-08 19:39 | Emergency (ER) | payer MEDICARE, OTHER ==
[~2020-02-08] VITALS: Ht 185.4 cm; Wt 95.3 kg
--- NOTE | 2020-02-08 19:45 | NUR ---
PT CAME TO THE ED C/O SI W/ A PLAN TO OD ON DRUGS AND ALCOHOL. PT STATES " I AM CONSTANTLY THINKING ABOUT AND MORBID THINGS". PT AAOX4,RESPIRATIONS EVEN AND UNLABORED ON RA W/ NAD NOTED. PT CONNECTED TO THE MONITOR AND POX. PT CHANGED TO GOWN, BELONGINGS PLACED TO LOCKER. SUICIDE PRECAUTIONS IMPLEMENTED. SITTER AT BEDSIDE FOR SAFETY
[2020-02-08 20:06] LABS: APPEARANCE,URINE Clear (CLEAR); BILIRUBIN,URINE SMALL (NEGATIVE); BLOOD, URINE Negative Ery/uL (NEGATIVE); COLOR,URINE Yellow (YELLOW); KETONES,URINE Negative (NEGATIVE); LEUKOCYTE ESTERASE ,URINE Negative (NEGATIVE); NITRITE, URINE Negative (NEGATIVE); PH,URINE 5.5 (5.0-8.0); PROTEIN,URINE 30 mg/dl (NEGATIVE); UGLUCOSE Negative (NEGATIVE); UROBILINOGEN,URINE 0.2 EU/dL (0.2)
[2020-02-08] MEDS ORDERED: OLANZAPINE 5 MG TABLET ONE (20:06)
[2020-02-08] MEDS: OLANZAPINE 5 MG TABLET PO ONE (20:10)
--- NOTE | 2020-02-08 20:10 | NUR ---
PT MEDICATED ORDERED
[2020-02-08] MEDS ORDERED: CLONIDINE HCL 0.1 MG TABLET ONE (20:11)
[2020-02-08] MEDS: CLONIDINE HCL 0.1 MG TABLET PO ONE (20:14)
[2020-02-08 20:19] LABS: BASOPHILS # (AUTO) 0.1 /CMM (0.0-0.2); BASOPHILS % (AUTO) 0.9 % (0.0-2.0); EOSINOPHILS % (AUTO) 0.3 % (0.0-6.0); HEMATOCRIT 45 % (39-51); HEMOGLOBIN 15.3 g/dL (13.5-17.5); LYMPHOCYTES # (AUTO) 2.3 /CMM (0.8-4.8); LYMPHOCYTES % (AUTO) 18.1 % (20.0-44.0); MEAN CORPUSCULAR HGB CONC 34 g/dl (31.0-36.0); MEAN CORPUSCULAR VOLUME 93 fL (80-96); MONOCYTES # (AUTO) 0.8 /CMM (0.1-1.30); MONOCYTES % (AUTO) 6.6 % (2.0-12.0); NEUTROPHILS # (AUTO) 9.3 /CMM (1.8-8.9); NEUTROPHILS % (AUTO) 74.1 % (43.0-81.0); PLATELET COUNT (AUTO) 378 /CMM (150-450); RED BLOOD CELL COUNT(AUTO) 4.83 MIL/uL (4.5-6.0); WHITE BLOOD COUNT (AUTO) 12.6 K/uL (4.3-11.0)
[2020-02-08 20:27] LABS: BACTERIA,URINE Rare /HPF (None Seen); RBC,URINE NONE SEEN /HPF (0-2); SQUAMOUS EPITHELIAL CELL,UR Rare /HPF (None Seen); URINE AMORPHOUS URATE Few /HPF (None Seen); WBC,URINE 0-2 /HPF (0-3)
[2020-02-08 20:28] LABS: MUCUS,URINE Many /LPF (None Seen)
[2020-02-08 20:31] LABS: CALCIUM, SERUM 8.5 mg/dL (8.5-10.1); CARBON DIOXIDE 20 mmol/L (21-32); CHLORIDE 101 mmol/L (98-107); CREATININE 1.3 mg/dL (0.6-1.3); GLUCOSE 172 mg/dL (74-106); POTASSIUM 2.9 mmol/L (3.5-5.1); SODIUM SERUM 138 mmol/L (136-145); UREA NITROGEN, BLOOD 13 mg/dL (7-18)
[2020-02-08 20:38] LABS: ALANINE AMINOTRANSFERASE 45 U/L (12-78); ALBUMIN 3.7 g/dL (3.4-5.0); ALCOHOL, BLOOD < 3 mg/dL (0-0); ALKALINE PHOSPHATASE 73 U/L (46-116); ASPARTATE AMINOTRANSFERASE 22 U/L (15-37); BILIRUBIN,DIRECT 0.1 mg/dL (0.0-0.2); BILIRUBIN,TOTAL 0.4 mg/dL (0.2-1.0); TOTAL PROTEIN, SERUM 7.6 g/dL (6.4-8.2)
[2020-02-08 20:52] LABS: ACETAMINOPHEN < 2 ug/ml (10-30); SALICYLATE 1.9 mg/dL (2.8-20.0)
[2020-02-08] MEDS ORDERED: POTASSIUM CHLORIDE 20 MEQ TAB.PRT.SR PO ONE (21:33)
[2020-02-08] MEDS: POTASSIUM CHLORIDE 20 MEQ TAB.PRT.SR PO ONE (21:38)
--- NOTE | 2020-02-08 21:55 | NUR ---
CLINICAL FAXED TO [facility] FOR VOLUNTARY ADMISSION.
--- NOTE | 2020-02-08 23:33 | NUR ---
PT RESTING COMFORTABLY IN BED. VSS. NO ACUTE DISTRESS NOTED. WILL CONTINUE TO MONITOR. SITTER AT BEDSIDE FOR SAFETY
--- NOTE | 2020-02-08 23:48 | NUR ---
Waleska joy in ED - 02/08/20 at 2353 by CBATACLAN Call from [facility]. Pt accepted to [facility] by Dr Fox. # for report [phone]
--- NOTE | 2020-02-08 23:53 | NUR ---
GOT A CALL FROM [facility]. PT IS ACCEPTED AT [facility] UNDER DR BARKSDALE . NO FOR REPORT: [phone], UNIT 1
--- NOTE | 2020-02-08 23:55 | NUR ---
[facility] called for S transport. ETA 0130 .
--- NOTE | 2020-02-09 00:23 | NUR ---
Waleska joy in [place] - 02/09/20 at 0024 by UVALDO REPORT GIVEN TO ROSA SHARP ITAL[facility]
--- NOTE | 2020-02-09 00:24 | NUR ---
REPORT GIVEN TO ROSA SHARP FOR [facility]
--- NOTE | 2020-02-09 00:44 | NUR ---
PT RESTING COMFORTABLY IN BED. VSS. NO ACUTE DISTRESS NOTED. SITTER AT BEDSIDE FOR SAFETY. CALL LIGHT WITHIN REACH
--- NOTE | 2020-02-09 01:21 | NUR ---
Call from [facility]. Pt accepted to [facility] by Dr Fox. # for report
--- NOTE | 2020-02-09 02:00 | NUR ---
PT ASLEEP, NO ACUTE DISTRESS NOTED, RESP EVEN AND UNLABORED. NO PAIN OR DISCOMFORT NOTED. CALL LIGHT WIHTIN REACH. WILL CONTINUE TO MONITOR PT CLOSELY. 1:1 SITTER REMAINS AT BEDSIDE.
[2020-02-09 05:06] VITALS: BP 126/72
--- NOTE | 2020-02-09 06:05 | NUR ---
pt was picked up by [facility] ambulance in stable condition and was transferred to [facility].
== END 2020-02-09 06:09 ==
LOC: ER 19:44
DX: R45.851 Suicidal ideations (principal); E87.6 Hypokalemia; F15.10 Other stimulant abuse, uncomplicated; I10 Essential (primary) hypertension; F20.9 Schizophrenia, unspecified; F31.9 Bipolar disorder, unspecified; F17.200 Nicotine dependence, unspecified, uncomplicated; Z90.89 Acquired absence of other organs; Z59.0 Homelessness; Z79.899 Other long term (current) drug therapy
CPT/HCPCS: 36415; 80048; 80076; 80305; 80307; 80329; 81001; 83735; 85025; 99285; G0480; 81000-TC

== ENCOUNTER 2020-02-23 03:32 | Emergency (ER) | payer MEDICARE, OTHER ==
[~2020-02-23] VITALS: Ht 185.4 cm; Wt 95.3 kg
--- NOTE | 2020-02-23 03:37 | NUR ---
PT AAOX4. BIB EMS C/O SI WITH PLAN TO DRINK HIMSELF TO WITH ALCOHOL. DENIES HI. PT PLACED IN GOWN, ON MONITOR, AND PULSE OX. BELONGINGS PLACED IN LOCKER. SITTER AT BEDSIDE. MD AT BEDSIDE FOR EVAL. AWAITING ORDERS.
--- NOTE | 2020-02-23 03:43 | NUR ---
PT PROVIDED URINE SAMPLE. SENT TO LAB
--- NOTE | 2020-02-23 04:01 | NUR ---
COST CONTROL SUPERVISOR AT BEDSIDE FOR BLOOD WORK.
[2020-02-23 04:05] LABS: APPEARANCE,URINE CLEAR (CLEAR); BILIRUBIN,URINE NEGATIVE (NEGATIVE); BLOOD, URINE NEGATIVE Ery/uL (NEGATIVE); COLOR,URINE YELLOW (YELLOW); KETONES,URINE NEGATIVE (NEGATIVE); LEUKOCYTE ESTERASE ,URINE NEGATIVE (NEGATIVE); NITRITE, URINE NEGATIVE (NEGATIVE); PROTEIN,URINE NEGATIVE (NEGATIVE); UGLUCOSE NEGATIVE (NEGATIVE); UROBILINOGEN,URINE 0.2 EU/dL (0.2)
[2020-02-23 04:06] LABS: BASOPHILS # (AUTO) 0.1 /CMM (0.0-0.2); EOSINOPHILS % (AUTO) 0.9 % (0.0-6.0); HEMATOCRIT 44 % (39-51); HEMOGLOBIN 15.1 g/dL (13.5-17.5); LYMPHOCYTES # (AUTO) 2.4 /CMM (0.8-4.8); LYMPHOCYTES % (AUTO) 23.4 % (20.0-44.0); MEAN CORPUSCULAR HGB CONC 34 g/dl (31.0-36.0); MEAN CORPUSCULAR VOLUME 94 fL (80-96); MONOCYTES # (AUTO) 0.7 /CMM (0.1-1.30); MONOCYTES % (AUTO) 6.6 % (2.0-12.0); NEUTROPHILS # (AUTO) 6.9 /CMM (1.8-8.9); NEUTROPHILS % (AUTO) 68.1 % (43.0-81.0); PLATELET COUNT (AUTO) 304 /CMM (150-450); RED BLOOD CELL COUNT(AUTO) 4.72 MIL/uL (4.5-6.0); WHITE BLOOD COUNT (AUTO) 10.2 K/uL (4.3-11.0)
[2020-02-23 04:13] LABS: CALCIUM, SERUM 8.2 mg/dL (8.5-10.1); CARBON DIOXIDE 28 mmol/L (21-32); CHLORIDE 100 mmol/L (98-107); GLUCOSE 122 mg/dL (74-106); POTASSIUM 3.2 mmol/L (3.5-5.1); SODIUM SERUM 138 mmol/L (136-145); UREA NITROGEN, BLOOD 6 mg/dL (7-18)
[2020-02-23 04:23] LABS: BILIRUBIN,DIRECT 0.1 mg/dL (0.0-0.2); BILIRUBIN,TOTAL 0.4 mg/dL (0.2-1.0)
[2020-02-23 04:24] LABS: ALANINE AMINOTRANSFERASE 61 U/L (12-78); ALBUMIN 3.7 g/dL (3.4-5.0); ALKALINE PHOSPHATASE 87 U/L (46-116); ASPARTATE AMINOTRANSFERASE 30 U/L (15-37); TOTAL PROTEIN, SERUM 7.4 g/dL (6.4-8.2)
[2020-02-23 04:25] LABS: ACETAMINOPHEN < 2 ug/ml (10-30); ALCOHOL, BLOOD 0 mg/dL (0-0)
--- NOTE | 2020-02-23 04:26 | NUR ---
[employer] AT BEDSIDE
[2020-02-23] MEDS ORDERED: POTASSIUM CHLORIDE 20 MEQ TAB.PRT.SR PO ONE ×2 (05:00→05:01)
--- NOTE | 2020-02-23 05:04 | NUR ---
call from lab. rapid covid negative.
--- NOTE | 2020-02-23 06:02 | NUR ---
Facesheet and clinicals faxed to [facility].
--- NOTE | 2020-02-23 08:53 | NUR ---
This SW followed up with Henry at [facility]. Henry to reach out to this SW to provide an update.
--- NOTE | 2020-02-23 09:37 | NUR ---
REPORT GIVEN TO NURSING JIAN MAYORGA. PENDING TRANSPORT AMBULANCE.
--- NOTE | 2020-02-23 10:07 | NUR ---
TRANSPORT CALLED AM WEST ETA 1100 PER RICA
[2020-02-23 11:20] VITALS: BP 154/74
--- NOTE | 2020-02-23 11:20 | NUR ---
REPORT GIVEN TO DETECTIVE SERGEANT, PATIENT A/OX4, BREATHING EVEN AND UNLABORED, NO SOB NOTED. DENIES PAIN AT THIS TIME. TRANSFERRED TO [facility] FOR VOLUNTARY PSYCHIATRIC ADMISSION.
== END 2020-02-23 11:21 ==
LOC: ER 03:36
DX: R45.851 Suicidal ideations (principal); F31.9 Bipolar disorder, unspecified; Z59.0 Homelessness; I10 Essential (primary) hypertension; F20.9 Schizophrenia, unspecified; Z20.828 Contact with and (suspected) exposure to other viral communicable diseases; Z79.899 Other long term (current) drug therapy
CPT/HCPCS: 36415; 80048-TC; 80076-TC; 81000-TC; 85025-TC; C9803; G0480

== ENCOUNTER 2020-06-10 17:55 | Emergency (ER) | payer MEDICARE, OTHER ==
[~2020-06-10] VITALS: Ht 185.4 cm; Wt 97.1 kg
--- NOTE | 2020-06-10 17:55 | NUR ---
PT BIB SELF C/O SI "I WANT TO OD ON DRUGS" PT IS AAOX4, NOT IN RESPIRATORY DISTRESS, V/S STABLE, KEPT RESTED AND COMFORTABLE. SITTER AT BEDSIDE. WILL CONTINUE TO MONITOR.
--- NOTE | 2020-06-10 18:00 | NUR ---
SEEN AND EXAMINED BY
--- NOTE | 2020-06-10 18:15 | NUR ---
SECURITY AT BEDSIDE FOR WANDING.
--- NOTE | 2020-06-10 18:15 | NUR ---
URINAL GIVEN BUT UNABLE TO PROVIDE URINE SPECIMEN THIS TIME.
[2020-06-10 18:28] LABS: BASOPHILS # (AUTO) 0.1 /CMM (0.0-0.2); BASOPHILS % (AUTO) 0.9 % (0.0-2.0); HEMATOCRIT 43 % (39-51); HEMOGLOBIN 14.3 g/dL (13.5-17.5); LYMPHOCYTES # (AUTO) 2.5 /CMM (0.8-4.8); LYMPHOCYTES % (AUTO) 21.1 % (20.0-44.0); MEAN CORPUSCULAR HGB CONC 34 g/dl (31.0-36.0); MEAN CORPUSCULAR VOLUME 95 fL (80-96); MONOCYTES # (AUTO) 0.7 /CMM (0.1-1.30); MONOCYTES % (AUTO) 6.2 % (2.0-12.0); NEUTROPHILS # (AUTO) 8.5 /CMM (1.8-8.9); NEUTROPHILS % (AUTO) 70.8 % (43.0-81.0); PLATELET COUNT (AUTO) 415 /CMM (150-450); RED BLOOD CELL COUNT(AUTO) 4.51 MIL/uL (4.5-6.0)
[2020-06-10 18:44] LABS: ACETAMINOPHEN 0 ug/ml (10-30); ALANINE AMINOTRANSFERASE 46 U/L (12-78); ALBUMIN 3.9 g/dL (3.4-5.0); ALCOHOL, BLOOD < 3 mg/dL (0-0); ALKALINE PHOSPHATASE 79 U/L (46-116); ASPARTATE AMINOTRANSFERASE 26 U/L (15-37); BILIRUBIN,DIRECT 0.1 mg/dL (0.0-0.2); BILIRUBIN,TOTAL 0.4 mg/dL (0.2-1.0); CALCIUM, SERUM 8.7 mg/dL (8.5-10.1); CARBON DIOXIDE 24 mmol/L (21-32); CHLORIDE 102 mmol/L (98-107); CREATININE 1.1 mg/dL (0.6-1.3); GLUCOSE 94 mg/dL (74-106); SODIUM SERUM 137 mmol/L (136-145); TOTAL PROTEIN, SERUM 7.9 g/dL (6.4-8.2); UREA NITROGEN, BLOOD 15 mg/dL (7-18)
--- NOTE | 2020-06-10 20:25 | NUR ---
CLINICAL INFORMATION FAXED TO [facility]
[2020-06-10] MEDS ORDERED: OLANZAPINE 5 MG TABLET PO ONE (22:00)
[2020-06-10 23:17] LABS: BILIRUBIN,URINE SMALL (NEGATIVE); COLOR,URINE YELLOW (YELLOW); LEUKOCYTE ESTERASE ,URINE Negative (NEGATIVE); NITRITE, URINE Negative (NEGATIVE); PH,URINE 5.5 (5.0-8.0); PROTEIN,URINE Negative (NEGATIVE); UGLUCOSE Negative (NEGATIVE); UROBILINOGEN,URINE 0.2 EU/dL (0.2)
[2020-06-10 23:37] LABS: RBC,URINE 0-2 /HPF (0-2)
[2020-06-10 23:38] LABS: BACTERIA,URINE Few /HPF (None Seen); SQUAMOUS EPITHELIAL CELL,UR Few /HPF (None Seen)
--- NOTE | 2020-06-10 23:59 | NUR ---
TRANSFER INFORMATION: [facility]ED [facility] ACCEPTING MD: DR. KATZ UNIT 1 NUMBER FOR REPORT: [phone] [facility] ETA 0400
--- NOTE | 2020-06-11 00:08 | NUR ---
[facility] ETA 1 HOUR
--- NOTE | 2020-06-11 00:22 | NUR ---
REPORT GIVEN TO ROSA SHARP FOR [facility]AL[facility]
[2020-06-11] MEDS ORDERED: OLANZAPINE ZYDIS 5 MG TAB.RAPDIS ONE (00:37)
--- NOTE | 2020-06-11 02:06 | NUR ---
REPORT GIVEN TO [facility] FOR TRANSPORTATION [facility]
[2020-06-11 02:07] VITALS: BP 156/95
== END 2020-06-11 02:07 ==
LOC: ER 17:58
DX: R45.851 Suicidal ideations (principal); F23 Brief psychotic disorder; F15.10 Other stimulant abuse, uncomplicated; F19.10 Other psychoactive substance abuse, uncomplicated; Z20.822 Contact with and (suspected) exposure to COVID-19; D72.829 Elevated white blood cell count, unspecified; F31.9 Bipolar disorder, unspecified; F20.9 Schizophrenia, unspecified; I10 Essential (primary) hypertension
CPT/HCPCS: 36415; 80048-TC; 80076-TC; 81001; 85025-TC; C9803; G0480

== ENCOUNTER 2020-11-05 06:37 | Emergency (ER) | payer MEDICARE, OTHER ==
[~2020-11-05] VITALS: Ht 185.4 cm; Wt 97.1 kg
--- NOTE | 2020-11-05 06:50 | NUR ---
urine collected and sent to the lab.
[2020-11-05 07:23] LABS: BASOPHILS # (AUTO) 0.1 K/uL (0.0-0.2); EOSINOPHILS % (AUTO) 0.4 % (0.0-6.0); HEMATOCRIT 44 % (39-51); HEMOGLOBIN 14.8 g/dL (13.5-17.5); LYMPHOCYTES # (AUTO) 2.4 K/uL (0.8-4.8); LYMPHOCYTES % (AUTO) 28.9 % (20.0-44.0); MEAN CORPUSCULAR HGB CONC 33 g/dl (31.0-36.0); MEAN CORPUSCULAR VOLUME 94 fL (80-96); MONOCYTES # (AUTO) 0.9 K/uL (0.1-1.30); MONOCYTES % (AUTO) 10.3 % (2.0-12.0); NEUTROPHILS % (AUTO) 59.4 % (43.0-81.0); PLATELET COUNT (AUTO) 443 K/uL (150-450); WHITE BLOOD COUNT (AUTO) 8.3 K/uL (4.3-11.0)
--- NOTE | 2020-11-05 07:25 | NUR ---
ASSESSED PT ON BED AWAKE ASLEEP EASILY AROUSABLE, NOT IN RESPIRATORY DISTRESS, V/S STABLE, KEPT RESTED AND COMFORTABLE. SITTER AT BEDSIDE. WILL CONTINUE TO MONITOR.
[2020-11-05 07:35] LABS: BILIRUBIN,URINE NEGATIVE (NEGATIVE); COLOR,URINE DARK YELLOW (YELLOW); LEUKOCYTE ESTERASE ,URINE NEGATIVE (NEGATIVE); NITRITE, URINE NEGATIVE (NEGATIVE); PROTEIN,URINE TRACE mg/dl (NEGATIVE); UGLUCOSE NEGATIVE (NEGATIVE); UROBILINOGEN,URINE 0.2 EU/dL (0.2)
[2020-11-05 07:46] LABS: BACTERIA,URINE Rare /HPF (None Seen); RBC,URINE NONE SEEN /HPF (0-2); WBC,URINE NONE SEEN /HPF (0-3)
[2020-11-05 07:47] LABS: URINE AMORPHOUS URATE Moderate /HPF (None Seen)
[2020-11-05 07:48] LABS: SQUAMOUS EPITHELIAL CELL,UR Rare /HPF (None Seen)
[2020-11-05 07:51] LABS: COARSE GRANULAR CASTS,URINE Rare /LPF (None Seen)
[2020-11-05 08:00] LABS: CALCIUM, SERUM 8.3 mg/dL (8.5-10.1); CREATININE 0.8 mg/dL (0.6-1.3); POTASSIUM 3.2 mmol/L (3.5-5.1)
[2020-11-05 08:06] LABS: ALBUMIN 4.2 g/dL (3.4-5.0); BILIRUBIN,DIRECT 0.2 mg/dL (0.0-0.2); BILIRUBIN,TOTAL 0.7 mg/dL (0.2-1.0); TOTAL PROTEIN, SERUM 7.7 g/dL (6.4-8.2)
--- NOTE | 2020-11-05 08:20 | NUR ---
covid 19 swab collected and sent to lab.
--- NOTE | 2020-11-05 10:45 | NUR ---
Securities Attorney consult: fast food services manager consult requested for patient experiencing hallucinations and homelessness. Patient is a 45-year-old, male. SW met with patient at his bedside in the emergency department. Patient is alert and oriented x4. Patient presented distressed and repeatedly stated, I need help, something is wrong with me. Per chart, patient was brought in from the streets on 11/05/20 with complaints of auditory hallucinations. Patient is currently homeless and stated that he has been homeless for the last 20 years. Patient reported that his current source of income is [employer]. SW asked patient if he has a history of substance use and patient reported daily alcohol and drug use. Patient did not want to discuss which substances he uses and stated, I dont know lady. Per patients toxicology report, patient is positive for amphetamine. SW assessed patients history of mental illness and patient reported, Bipolar Schizophrenia. Patient reported that he is not currently taking psychiatric medication. Patient reported current hallucinations which include auditory and visual hallucinations. Patient stated that he hears and sees people who are trying to kill him. Patient reported current suicidal ideation and stated, yes, Ill drink myself to . Patient denied homicidal ideation. SW offered patient homeless and substance use resources. Patient declined the resources and stated, they wont help me. Patient signed the homeless waiver and SW filed waiver in the patients chart. Patient requested to be referred to an inpatient psychiatric hospital for voluntary admission. BHAVIN will fax clinicals to [facility], , for review. PLAN: BHAVIN will fax clinicals to [facility] for review. SW will remain available as needed.
--- NOTE | 2020-11-05 10:56 | NUR ---
Electric Pile Driver Operator note: BHAVIN faxed clinicals to [facility], , for review.
--- NOTE | 2020-11-05 12:07 | NUR ---
report given to Elisabeth LEE for [facility]
--- NOTE | 2020-11-05 12:08 | NUR ---
CALLED FOR TRANSPORT @ 1400 PER SANCHEZ PINK
--- NOTE | 2020-11-05 12:39 | NUR ---
Junior Assistant Manager note: SW received a call from [facility], , that the patient has been accepted to [facility]. Call to report after 2 p.m., .
--- NOTE | 2020-11-05 14:10 | NUR ---
REPORT GIVEN TO EMT FOR PT TRANSFER TO [facility].
[2020-11-05 14:14] VITALS: BP 123/70
== END 2020-11-05 14:16 ==
LOC: ER 06:39
DX: F10.129 Alcohol abuse with intoxication, unspecified (principal); Y90.6 Blood alcohol level of 120-199 mg/100 ml; F15.10 Other stimulant abuse, uncomplicated; Z59.0 Homelessness; F17.200 Nicotine dependence, unspecified, uncomplicated; F20.9 Schizophrenia, unspecified; F31.9 Bipolar disorder, unspecified; I10 Essential (primary) hypertension; Z20.822 Contact with and (suspected) exposure to COVID-19
CPT/HCPCS: 36415; 80048-TC; 80076-TC; 81001; 85025-TC; C9803; G0480

== ENCOUNTER 2021-02-23 04:07 | Emergency (ER) | payer MEDICARE, OTHER ==
[~2021-02-23] VITALS: Ht 182.9 cm; Wt 86.2 kg
--- NOTE | 2021-02-23 04:24 | NUR ---
Waleska joy in ED - 02/23/21 at 0424 by JIMMIE PT AT CT
--- NOTE | 2021-02-23 05:06 | NUR ---
covid swab done and sent to lab
--- NOTE | 2021-02-23 05:06 | NUR ---
MALE INFERTILITY SPECIALIST AT BEDSIDE
[2021-02-23 05:32] LABS: BASOPHILS # (AUTO) 0.1 K/uL (0.0-0.2); BASOPHILS % (AUTO) 0.7 % (0.0-2.0); EOSINOPHILS % (AUTO) 0.7 % (0.0-6.0); HEMATOCRIT 44 % (39-51); HEMOGLOBIN 14.8 g/dL (13.5-17.5); LYMPHOCYTES # (AUTO) 1.9 K/uL (0.8-4.8); LYMPHOCYTES % (AUTO) 22.1 % (20.0-44.0); MEAN CORPUSCULAR HGB CONC 34 g/dl (31.0-36.0); MEAN CORPUSCULAR VOLUME 94 fL (80-96); MONOCYTES # (AUTO) 0.8 K/uL (0.1-1.30); MONOCYTES % (AUTO) 9.7 % (2.0-12.0); NEUTROPHILS # (AUTO) 5.6 K/uL (1.8-8.9); NEUTROPHILS % (AUTO) 66.8 % (43.0-81.0); PLATELET COUNT (AUTO) 420 K/uL (150-450); RED BLOOD CELL COUNT(AUTO) 4.65 MIL/uL (4.5-6.0); WHITE BLOOD COUNT (AUTO) 8.4 K/uL (4.3-11.0)
[2021-02-23 05:40] LABS: CALCIUM, SERUM 8.8 mg/dL (8.5-10.1); CARBON DIOXIDE 24 mmol/L (21-32); CHLORIDE 99 mmol/L (98-107); CREATININE 0.8 mg/dL (0.6-1.3); GLUCOSE 123 mg/dL (74-106); POTASSIUM 3.3 mmol/L (3.5-5.1); SODIUM SERUM 135 mmol/L (136-145); UREA NITROGEN, BLOOD 12 mg/dL (7-18)
[2021-02-23 05:46] LABS: ALANINE AMINOTRANSFERASE 32 U/L (12-78); ALBUMIN 4.4 g/dL (3.4-5.0); ALCOHOL, BLOOD < 3 mg/dL (0-0); ALKALINE PHOSPHATASE 78 U/L (46-116); ASPARTATE AMINOTRANSFERASE 26 U/L (15-37); BILIRUBIN,DIRECT 0.2 mg/dL (0.0-0.2); BILIRUBIN,TOTAL 0.7 mg/dL (0.2-1.0); TOTAL PROTEIN, SERUM 8.1 g/dL (6.4-8.2)
[2021-02-23 05:47] LABS: ACETAMINOPHEN 0 ug/ml (10-30)
[2021-02-23 06:07] LABS: BILIRUBIN,URINE SMALL (NEGATIVE); COLOR,URINE YELLOW (YELLOW); LEUKOCYTE ESTERASE ,URINE NEGATIVE (NEGATIVE); NITRITE, URINE NEGATIVE (NEGATIVE); PROTEIN,URINE NEGATIVE (NEGATIVE); UGLUCOSE NEGATIVE (NEGATIVE); UROBILINOGEN,URINE 0.2 EU/dL (0.2)
[2021-02-23 07:17] LABS: BACTERIA,URINE None seen /HPF (None Seen); SQUAMOUS EPITHELIAL CELL,UR None Seen /HPF (None Seen); WBC,URINE NONE SEEN /HPF (0-3)
[2021-02-23 07:21] LABS: URINE AMORPHOUS URATE Many /HPF (None Seen)
--- NOTE | 2021-02-23 10:15 | NUR ---
CLINICALS FAXED TO [facility].
--- NOTE | 2021-02-23 11:09 | NUR ---
REPORT GIVEN TO NURSING AUTOMATIC CENTRIFUGAL STATION OPERATOR SKYLAR. AWAITING TRANSPORT AMBULANCE.
--- NOTE | 2021-02-23 11:10 | NUR ---
CALLED [facility] FOR BLS TRANSPORT TO [facility]. ETA 1200
[2021-02-23] MEDS ORDERED: IBUPROFEN 600 MG TABLET ONE (11:26)
[2021-02-23 11:30] VITALS: BP 140/90
[2021-02-23] MEDS ORDERED: IBUPROFEN 600 MG TABLET PO ONE (11:30)
--- NOTE | 2021-02-23 11:31 | NUR ---
TRANSPORTED TO [facility] IN STABLE CONDITION.
== END 2021-02-23 11:32 ==
LOC: ER 04:07
DX: R45.851 Suicidal ideations (principal); Z20.822 Contact with and (suspected) exposure to COVID-19; Z59.00 Homelessness unspecified; F17.200 Nicotine dependence, unspecified, uncomplicated; F31.9 Bipolar disorder, unspecified; F20.9 Schizophrenia, unspecified
CPT/HCPCS: 36415; 80048-TC; 80076-TC; 81001; 85025-TC; C9803; G0480

== ENCOUNTER 2021-07-25 17:10 | Emergency (ER) | payer MEDICARE, OTHER ==
[~2021-07-25] VITALS: Ht 185.4 cm; Wt 90.7 kg
[2021-07-25 17:49] VITALS: BP 150/80
--- NOTE | 2021-07-25 18:49 | NUR ---
Patient given written and verbal discharge instructions. Patient verbalizes understanding of instructions. Patient is ambulatory with steady gait. Refuses offer of senior living placement. Patient given list of available shelters in surrounding area.
--- NOTE | 2021-07-25 18:52 | NUR ---
Patient discharged to home in stable condition. Written and verbal after care instructions given. Patient verbalizes understanding of instruction.
== END 2021-07-25 18:55 | disposition home or self-care (01) ==
LOC: ER 17:14
DX: F23 Brief psychotic disorder (principal); M79.10 Myalgia, unspecified site; F31.9 Bipolar disorder, unspecified; F17.200 Nicotine dependence, unspecified, uncomplicated; Z90.89 Acquired absence of other organs; Z59.00 Homelessness unspecified

== ENCOUNTER 2022-03-12 04:55 | Emergency (ER) | payer MEDICARE, OTHER ==
[~2022-03-12] VITALS: Ht 175.3 cm; Wt 81.6 kg
--- NOTE | 2022-03-12 05:04 | NUR ---
[id number] FROM STRE[address] C/O DIZZINESS. PT ADMITS TO DRINKING ALCOHOL. PT A/OX4. TOLERATING R/A WELL WITH NO RESP DISTRESS. PT AMBULATORY WITH STEADY GAIT. SAFETY MEASURES IN PLACE
[2022-03-12] MEDS: IV NS 0.9% 1,000 ML BAG IV ONE (05:34)
--- NOTE | 2022-03-12 05:34 | NUR ---
RAC #20G S/L BLOOD AND URINE COLLECTED AND SENT TO LAB
[2022-03-12] MEDS ORDERED: ACETAMINOPHEN 325 MG TABLET ONE (05:46)
[2022-03-12] MEDS: ACETAMINOPHEN 325 MG TABLET PO ONE (05:48)
[2022-03-12 05:51] LABS: BASOPHILS % (AUTO) 0.6 % (0.0-2.0); EOSINOPHILS % (AUTO) 0.9 % (0.0-6.0); HEMATOCRIT 44 % (39-51); LYMPHOCYTES # (AUTO) 1.5 K/uL (0.8-4.8); MEAN CORPUSCULAR HGB CONC 34 g/dl (31.0-36.0); MEAN CORPUSCULAR VOLUME 94 fL (80-96); MONOCYTES # (AUTO) 0.7 K/uL (0.1-1.30); MONOCYTES % (AUTO) 8.9 % (2.0-12.0); NEUTROPHILS # (AUTO) 5.2 K/uL (1.8-8.9); NEUTROPHILS % (AUTO) 69.6 % (43.0-81.0); PLATELET COUNT (AUTO) 382 K/uL (150-450); RED BLOOD CELL COUNT(AUTO) 4.65 MIL/uL (4.5-6.0); WHITE BLOOD COUNT (AUTO) 7.4 K/uL (4.3-11.0)
[2022-03-12 06:21] LABS: ALBUMIN 4.2 g/dL (3.4-5.0); BILIRUBIN,DIRECT 0.2 mg/dL (0.0-0.2); BILIRUBIN,TOTAL 0.6 mg/dL (0.2-1.0); CALCIUM, SERUM 8.9 mg/dL (8.5-10.1); CREATININE 0.8 mg/dL (0.6-1.3); POTASSIUM 3.4 mmol/L (3.5-5.1); TOTAL PROTEIN, SERUM 7.8 g/dL (6.4-8.2)
[2022-03-12 06:34] LABS: BILIRUBIN,URINE NEGATIVE (NEGATIVE); COLOR,URINE YELLOW (YELLOW); LEUKOCYTE ESTERASE ,URINE NEGATIVE (NEGATIVE); NITRITE, URINE NEGATIVE (NEGATIVE); PH,URINE 5.5 (5.0-8.0); PROTEIN,URINE NEGATIVE (NEGATIVE); UGLUCOSE NEGATIVE (NEGATIVE); UROBILINOGEN,URINE 0.2 EU/dL (0.2)
--- NOTE | 2022-03-12 07:45 | NUR ---
IV removed. Catheter intact and site benign. Pressure and 4x4 applied to site. No bleeding noted.
--- NOTE | 2022-03-12 07:50 | NUR ---
Patient discharged to home/homeless in stable condition. Written and verbal after care instructions given. Patient verbalizes understanding of instruction.
[2022-03-12 08:00] VITALS: BP 137/90
[2022-03-12 09:16] LABS: BACTERIA,URINE None seen /HPF (None Seen); RBC,URINE NONE SEEN /HPF (0-2); SQUAMOUS EPITHELIAL CELL,UR None Seen /HPF (None Seen); WBC,URINE NONE SEEN /HPF (0-3)
== END 2022-03-12 08:01 | disposition home or self-care (01) ==
LOC: ER 04:57
DX: R42 Dizziness and giddiness (principal); F31.9 Bipolar disorder, unspecified; F20.9 Schizophrenia, unspecified; F17.200 Nicotine dependence, unspecified, uncomplicated; Z90.89 Acquired absence of other organs; Z59.00 Homelessness unspecified; Z79.899 Other long term (current) drug therapy
CPT/HCPCS: 99285; 96360; 71045; 70450; 85025; 80048; 80076; 81001; 36415; 85730; 80320; 80307; J7030; G0480

== ENCOUNTER 2022-03-30 23:55 | Emergency (ER) | payer MEDICARE, OTHER ==
[~2022-03-30] VITALS: Ht 177.8 cm; Wt 54.4 kg
[2022-03-31 00:20] VITALS: BP 135/91
--- NOTE | 2022-03-31 00:35 | NUR ---
COVID SWAB COLLECTED
[2022-03-31 01:03] LABS: BASOPHILS % (AUTO) 0.6 % (0.0-2.0); EOSINOPHILS % (AUTO) 1.1 % (0.0-6.0); HEMATOCRIT 42 % (39-51); HEMOGLOBIN 14.2 g/dL (13.5-17.5); LYMPHOCYTES # (AUTO) 2.1 K/uL (0.8-4.8); LYMPHOCYTES % (AUTO) 25.8 % (20.0-44.0); MEAN CORPUSCULAR HGB CONC 34 g/dl (31.0-36.0); MEAN CORPUSCULAR VOLUME 95 fL (80-96); MONOCYTES # (AUTO) 0.5 K/uL (0.1-1.30); MONOCYTES % (AUTO) 6.4 % (2.0-12.0); NEUTROPHILS # (AUTO) 5.5 K/uL (1.8-8.9); NEUTROPHILS % (AUTO) 66.1 % (43.0-81.0); PLATELET COUNT (AUTO) 379 K/uL (150-450); RED BLOOD CELL COUNT(AUTO) 4.45 MIL/uL (4.5-6.0); WHITE BLOOD COUNT (AUTO) 8.3 K/uL (4.3-11.0)
[2022-03-31 01:16] LABS: CALCIUM, SERUM 8.4 mg/dL (8.5-10.1); CREATININE 0.8 mg/dL (0.6-1.3)
[2022-03-31 01:21] LABS: ALBUMIN 3.8 g/dL (3.4-5.0); BILIRUBIN,DIRECT 0.1 mg/dL (0.0-0.2); BILIRUBIN,TOTAL 0.3 mg/dL (0.2-1.0); TOTAL PROTEIN, SERUM 7.5 g/dL (6.4-8.2)
--- NOTE | 2022-03-31 01:25 | NUR ---
CALLED LAB TO SEWER AND DRAIN TECHNICIAN URINE SAMPLE
[2022-03-31 01:39] LABS: BILIRUBIN,URINE NEGATIVE (NEGATIVE); COLOR,URINE YELLOW (YELLOW); LEUKOCYTE ESTERASE ,URINE NEGATIVE (NEGATIVE); NITRITE, URINE NEGATIVE (NEGATIVE); PROTEIN,URINE NEGATIVE (NEGATIVE); UGLUCOSE NEGATIVE (NEGATIVE); UROBILINOGEN,URINE 0.2 EU/dL (0.2)
--- NOTE | 2022-03-31 02:52 | NUR ---
FAXED CLINICALS TO [facility]
[2022-03-31] MEDS ORDERED: LORAZEPAM 1 MG TABLET ONE (11:59)
[2022-03-31] MEDS ORDERED: LORAZEPAM 1 MG TABLET PO ONE (12:00)
--- NOTE | 2022-03-31 12:20 | NUR ---
PT ACCEPTED [facility] UNDER IRIELE PLEASE CALL [phone] FOR REPORT ETA 1300
--- NOTE | 2022-03-31 12:27 | NUR ---
CALLED TO GIVE REPORT, WENT TO [employer], MAILBOX IS FULL AND CANNOT LEAVE A MESSAGE.
--- NOTE | 2022-03-31 12:57 | NUR ---
TRANSPORTATION ARRIVED, PT TRANSFERRED TO [facility] IN STABLE CONDITION.
== END 2022-03-31 12:58 ==
LOC: ER 23:56
DX: R45.851 Suicidal ideations (principal); F20.9 Schizophrenia, unspecified; F31.9 Bipolar disorder, unspecified; F15.10 Other stimulant abuse, uncomplicated; Z59.00 Homelessness unspecified; Z20.822 Contact with and (suspected) exposure to COVID-19; Z79.899 Other long term (current) drug therapy
CPT/HCPCS: 36415; 80048-TC; 80076-TC; 85025-TC; C9803; G0480

== ENCOUNTER 2024-06-29 11:23 | Emergency (ER) | payer MEDICARE, OTHER ==
[~2024-06-29] VITALS: Ht 175.3 cm; Wt 74.8 kg
[2024-06-29 12:14] LABS: BASOPHILS # (AUTO) 0.1 K/uL (0.0-0.2); BASOPHILS % (AUTO) 1.2 % (0.0-2.0); EOSINOPHILS # (AUTO) 0.1 K/uL (0.0-0.7); EOSINOPHILS % (AUTO) 0.6 % (0.0-6.0); HEMATOCRIT 42 % (39-51); HEMOGLOBIN 14.3 g/dL (13.5-17.5); LYMPHOCYTES # (AUTO) 1.8 K/uL (0.8-4.8); LYMPHOCYTES % (AUTO) 16.3 % (20.0-44.0); MEAN CORPUSCULAR HEMOGLOBIN 31 PG (26.0-33.0); MEAN CORPUSCULAR HGB CONC 34 g/dl (31.0-36.0); MEAN CORPUSCULAR VOLUME 92 fL (80-96); MONOCYTES # (AUTO) 0.7 K/uL (0.1-1.30); MONOCYTES % (AUTO) 6.3 % (2.0-12.0); NEUTROPHILS # (AUTO) 8.2 K/uL (1.8-8.9); NEUTROPHILS % (AUTO) 75.6 % (43.0-81.0); PLATELET COUNT (AUTO) 401 K/uL (150-450); RED BLOOD CELL COUNT(AUTO) 4.59 MIL/uL (4.5-6.0); RED CELL DISTRIBUTION WIDTH 14.1 % (11.5-15.0); WHITE BLOOD COUNT (AUTO) 10.9 K/uL (4.3-11.0)
[2024-06-29 12:25] LABS: CALCIUM, SERUM 8.9 mg/dL (8.5-10.1); CARBON DIOXIDE 27 mmol/L (21-32); CHLORIDE 103 mmol/L (98-107); GLUCOSE 110 mg/dL (74-106); POTASSIUM 4.4 mmol/L (3.5-5.1); SODIUM SERUM 138 mmol/L (136-145); UREA NITROGEN, BLOOD 20 mg/dL (7-18)
[2024-06-29] MEDS ORDERED: NALO4SPR BNOSTRILS (12:26)
[2024-06-29 12:38] LABS: ALANINE AMINOTRANSFERASE 25 U/L (12-78); ALBUMIN 3.9 g/dL (3.4-5.0); ALCOHOL, BLOOD < 3 mg/dL (0-10); ALKALINE PHOSPHATASE 87 U/L (46-116); ASPARTATE AMINOTRANSFERASE 18 U/L (15-37); BILIRUBIN,DIRECT 0.1 mg/dL (0.0-0.2); BILIRUBIN,TOTAL 0.3 mg/dL (0.2-1.0); TOTAL PROTEIN, SERUM 7.8 g/dL (6.4-8.2)
[2024-06-29 12:43] LABS: ACETAMINOPHEN <10 ug/ml (10-30); SALICYLATE 1.8 mg/dL (2.8-20.0)
[2024-06-29 12:57] LABS: APPEARANCE,URINE CLEAR (CLEAR); BILIRUBIN,URINE NEGATIVE (NEGATIVE); BLOOD, URINE NEGATIVE Ery/uL (NEGATIVE); COLOR,URINE YELLOW (YELLOW); KETONES,URINE NEGATIVE (NEGATIVE); LEUKOCYTE ESTERASE ,URINE NEGATIVE (NEGATIVE); NITRITE, URINE NEGATIVE (NEGATIVE); PROTEIN,URINE NEGATIVE (NEGATIVE); UGLUCOSE NEGATIVE (NEGATIVE)
[2024-06-29 13:11] LABS: AMPHETAMINE, URINE POSITIVE (NEGATIVE); BARBITURATE, URINE NEGATIVE (NEGATIVE); BENZODIAZEPINE, URINE NEGATIVE (NEGATIVE); CANNABINOID, URINE NEGATIVE (NEGATIVE); COCCAINE, URINE NEGATIVE (NEGATIVE); OPIATE, URINE NEGATIVE (NEGATIVE); PHENCYCLIDINE SCREEN,URINE NEGATIVE (NEGATIVE)
[2024-06-29 13:16] LABS: ADD URINE CULTURE NO; BACTERIA,URINE Rare /HPF (None Seen); RBC,URINE 0-2 /HPF (0-2); SQUAMOUS EPITHELIAL CELL,UR None Seen /HPF (None Seen); WBC,URINE 0-2 /HPF (0-3)
[2024-06-29 16:00] VITALS: BP 145/79; TEMP 98; O2SAT 97
== END 2024-06-29 16:47 ==
LOC: ER 11:41
DX: R45.851 Suicidal ideations (principal); F15.10 Other stimulant abuse, uncomplicated; F17.200 Nicotine dependence, unspecified, uncomplicated; F20.9 Schizophrenia, unspecified; Z59.00 Homelessness unspecified; Z90.49 Acquired absence of other specified parts of digestive tract; Z20.822 Contact with and (suspected) exposure to COVID-19
CPT/HCPCS: 36415; 80048-TC; 80076-TC; 81001; 85025-TC; G0480

== ENCOUNTER 2024-08-21 03:39 | Emergency (ER) | payer MEDICARE, OTHER ==
[~2024-08-21] VITALS: Ht 177.8 cm; Wt 77.1 kg
[~2024-08-21 03:39] MED LIST changes: +NALO4SPR BNOSTRILS
[2024-08-21 04:36] LABS: BASOPHILS # (AUTO) 0.1 K/uL (0.0-0.2); BASOPHILS % (AUTO) 0.8 % (0.0-2.0); EOSINOPHILS % (AUTO) 0.3 % (0.0-6.0); HEMATOCRIT 44 % (39-51); HEMOGLOBIN 15.2 g/dL (13.5-17.5); LYMPHOCYTES # (AUTO) 1.7 K/uL (0.8-4.8); MEAN CORPUSCULAR HEMOGLOBIN 31 PG (26.0-33.0); MEAN CORPUSCULAR HGB CONC 34 g/dl (31.0-36.0); MEAN CORPUSCULAR VOLUME 90 fL (80-96); MONOCYTES # (AUTO) 0.6 K/uL (0.1-1.30); MONOCYTES % (AUTO) 6.8 % (2.0-12.0); NEUTROPHILS % (AUTO) 74.1 % (43.0-81.0); PLATELET COUNT (AUTO) 437 K/uL (150-450); RED BLOOD CELL COUNT(AUTO) 4.91 MIL/uL (4.5-6.0); RED CELL DISTRIBUTION WIDTH 14.1 % (11.5-15.0); WHITE BLOOD COUNT (AUTO) 9.5 K/uL (4.3-11.0)
[2024-08-21 04:40] LABS: APPEARANCE,URINE CLEAR (CLEAR); BILIRUBIN,URINE NEGATIVE (NEGATIVE); BLOOD, URINE NEGATIVE Ery/uL (NEGATIVE); COLOR,URINE YELLOW (YELLOW); KETONES,URINE NEGATIVE (NEGATIVE); LEUKOCYTE ESTERASE ,URINE NEGATIVE (NEGATIVE); NITRITE, URINE NEGATIVE (NEGATIVE); PROTEIN,URINE NEGATIVE (NEGATIVE); UGLUCOSE NEGATIVE (NEGATIVE); UROBILINOGEN,URINE 0.2 EU/dL (0.2)
[2024-08-21 04:43] LABS: CALCIUM, SERUM 9.1 mg/dL (8.5-10.1); CARBON DIOXIDE 29 mmol/L (21-32); CHLORIDE 100 mmol/L (98-107); CREATININE 0.7 mg/dL (0.6-1.3); GLUCOSE 99 mg/dL (74-106); POTASSIUM 3.7 mmol/L (3.5-5.1); SODIUM SERUM 138 mmol/L (136-145); UREA NITROGEN, BLOOD 14 mg/dL (7-18)
[2024-08-21 04:49] LABS: ACETAMINOPHEN < 10 ug/ml (10-30); ALANINE AMINOTRANSFERASE 19 U/L (12-78); ALCOHOL, BLOOD 13 mg/dL (0-10); ALKALINE PHOSPHATASE 77 U/L (46-116); ASPARTATE AMINOTRANSFERASE 16 U/L (15-37); BILIRUBIN,DIRECT 0.1 mg/dL (0.0-0.2); BILIRUBIN,TOTAL 0.3 mg/dL (0.2-1.0); SALICYLATE 2.3 mg/dL (2.8-20.0); TOTAL PROTEIN, SERUM 7.8 g/dL (6.4-8.2)
[2024-08-21 04:51] LABS: BARBITURATE, URINE NEGATIVE (NEGATIVE); BENZODIAZEPINE, URINE NEGATIVE (NEGATIVE); CANNABINOID, URINE NEGATIVE (NEGATIVE); COCCAINE, URINE NEGATIVE (NEGATIVE); OPIATE, URINE NEGATIVE (NEGATIVE); PHENCYCLIDINE SCREEN,URINE NEGATIVE (NEGATIVE)
[2024-08-21 04:55] LABS: AMPHETAMINE, URINE POSITIVE (NEGATIVE)
[2024-08-21 15:10] VITALS: BP 122/82; TEMP 98.1; O2SAT 98
[2024-08-21] MEDS ORDERED: RISP3TAB61 PO (15:19)
[2024-08-21] MEDS ORDERED: BUSP15TA3 PO (15:19)
== END 2024-08-21 15:24 | disposition home or self-care (01) ==
LOC: ER 03:48
DX: F23 Brief psychotic disorder (principal); F17.200 Nicotine dependence, unspecified, uncomplicated; F31.9 Bipolar disorder, unspecified; Z59.00 Homelessness unspecified; Z76.0 Encounter for issue of repeat prescription; Z20.822 Contact with and (suspected) exposure to COVID-19
CPT/HCPCS: 36415; 73630-TC; 80048-TC; 80076-TC; 85025-TC; G0480